=== PATIENT | female | born 1960 | race Caucasian/White ===

== ENCOUNTER 2016-07-05 16:07 | Inpatient (IN) | payer OTHER, MEDICAID ==
[~2016-07-05] VITALS: Ht 175.3 cm; Wt 94.6 kg
[~2016-07-05 16:07] MED LIST: AMIT150T PO; AMIT1TAB79 PO; ASPI325T33 PO; ATEN50TA PO; ATOR10TA15 PO; CHOL1TAB29 PO; CLOT1CRE6 TOPICAL; DEXA4TAB IA; FURO1TAB60 PO; GABA800T PO; GLIP10TA6 PO; GLUC1000 PO; LACT10SO PO; LISI-588 PO; METF500T PO; MS C60TA2 PO; MSIR15 PO; NITR0.4S SL; OMEP20TA PO; POTA10TA8 PO; PROM50TA PO; REGL10TA5 PO; SOMA350T PO; XANA1TAB2 PO; ZOFR4TAB PO; [UNRECOGNIZED DRUG - CODE] TOPICAL
[2016-07-05 16:10] VITALS: BP 105/47; PULSE 73; RESP 16; TEMP 98.4; O2SAT 97
[2016-07-05] MEDS ORDERED: SODIUM CHLOR 0.9% 1000 ML INJ 1,000 ML IV SCH (16:28)
[2016-07-05] MEDS ORDERED: SODIUM CHLORIDE 0.9% FLUSH 10 ML FLUSH IV FLUSH PRN ×2 (16:30→19:00)
[2016-07-05] MEDS ORDERED: ONDANSETRON HCL 4 MG/2 ML VIAL IVP ONE (16:30)
[2016-07-05 16:44] LABS: AUTOMATED NEUTROPHIL # 7.3 TH/MM3 (1.8-7.7); BASOPHIL % 0.3 % (0.0-2.0); EOSINOPHIL % 0.3 % (0.0-4.0); HEMATOCRIT 33.4 % (35.0-46.0); HEMO FLAGS DIFF FINAL; LYMPH % 21.4 % (9.0-44.0); LYMPHOCYTE # 2.1 TH/MM3 (1.0-4.8); MEAN CORPUSCULAR HEMOGLOBIN 27.7 PG (27.0-34.0); MEAN CORPUSCULAR HGB CONC 33.3 % (32.0-36.0); MONO % 5.3 % (0.0-8.0); NEUT % 72.7 % (16.0-70.0); PLATELET COUNT 189 TH/MM3 (150-450); RED BLOOD COUNT 4.03 MIL/MM3 (4.00-5.30); RED CELL DISTRIBUTION WIDTH 13.5 % (11.6-17.2); WHITE BLOOD COUNT 9.9 TH/MM3 (4.0-11.0)
--- NOTE | 2016-07-05 16:47 | PD ---
HPI Chief Complaint: GI Complaint Time Seen by Provider: 16:18 Travel History International Travel<30 days: No Contact w/Intl Traveler<30days: No Traveled to known affect area: No History of Present Illness HPI Patient is a 56 year old female who presents to ER with c/o of nausea, vomiting and acute urinary retention. Patient reports that she has not been feeling well for the past couple days, reports that she has been feeling nauseous and has been vomiting has not been able to keep down any fluids. Patient reports that since last night, she has not been able to urinate. Patient reports that she did have a recent urological procedure on May 04, [address] 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 Reports that she did follow up with her PCP on July 03, 2016 for her nausea and vomiting and was prescribed phenergen - reports that she has not had relief with phenergen as well as zofran. Patient reports that she has had suprapubic discomfort, denies any fevers or chills. PFSH Past Medical History Arthritis: Yes Asthma: No Autoimmune Disease: Yes (LUPUS) Blood Disorders: No Anxiety: Yes Depression: Yes Heart Rhythm Problems: Yes (TACHYCARDIA; PT HAS CONGENITAL CLUSTER DZ WITH MULTI COMPLICATIONS) Cancer: No Cardiovascular Problems: Yes (HX SVT, HX CHEST PAIN) High Cholesterol: Yes Chest Pain: Yes Congestive Heart Failure: No COPD: No Cerebrovascular Accident: No Diabetes: Yes Patient Takes Glucophage: Yes (METFORMIN) Diminished Hearing: No Endocrine: Yes Gastrointestinal Disorders: Yes (GALLSTONES) GERD: Yes Glaucoma: No Genitourinary: Yes (FREQUENT UTI'S ,RIGHT URETERAL STENT,HX KIDNEY STONES, CONGENITAL URETER [place]) Headaches: No Hepatitis: No Hiatal Hernia: No Hypertension: Yes Immune Disorder: No Implanted Vascular Access Dvce: Yes (STABILIZER FOR RIB AND P/ CARDIAC CLUSTER CORRECTION AND RIB FX) Kidney Stones: No Musculoskeletal: Yes (RIGHT TMJ, CERVICAL AND RIGHT SHOULDER,ARTHRITIS) Neurologic: No Psychiatric: Yes (PTSD/DEPRESSION) Reproductive: No Respiratory: No Immunizations Current: Yes Migraines: No Myocardial Infarction: No Renal Failure: No Seizures: No Sleep Apnea: No Thyroid Disease: No Ulcer: No Influenza Vaccination: No Menopausal: Yes : 4 Para: 3 Miscarriage: 1 : 1 Tubal Ligation: Yes Past Surgical History Abdominal Surgery: Yes (CHOLYCYSTECTOMY, REMOVAL STONE BILE DUCT) AICD: No Appendectomy: Yes Body Medical Devices: STIMULATOR LEFT BUTTOCKS Cardiac Surgery: No Cholecystectomy: Yes Ear Surgery: No Endocrine Surgery: No Eye Surgery: Yes (TEAR DUCT PLUGS) Genitourinary Surgery: Yes (URETERAL STENTS) Gynecologic Surgery: Yes (YANNA, TUBAL LIG.) Hysterectomy: Yes Joint Replacement: No Neurologic Surgery: Yes (L4-5 S1 FUSION) Oral Surgery: Yes (PART OF RIGHT JAWBONE REMOVED) Pacemaker: No Thoracic Surgery: Yes (SEE OTHER ) Other Surgery: Yes (33-38 SURGERIES) Social History Alcohol Use: No Tobacco Use: No (never) Substance Use: No Allergies-Medications (Allergen,Severity, Reaction): Coded Allergies: Adhesives (Verified Allergy, Severe, hives short period of time only is fine, 07/05/16) IV TAPES ARE OK Epinephrine (Verified Allergy, Severe, INCREASED SVT'S, 07/05/16) Shellfish (Verified Allergy, Severe, Hives, 07/05/16) Amoxicillin (Verified Allergy, Mild, CHEST TIGHTNESS, 07/05/16) Caffeine (Verified Adverse Reaction, Severe, SVT, 07/05/16) Codeine (Verified Adverse Reaction, Severe, IRREGULAR HEARTRATE, 07/05/16) Zanaflex (Verified Adverse Reaction, Severe, Hallucinations. , 07/05/16) Augmentin (Verified Adverse Reaction, Intermediate, [place] bad, chest felt funny, nauseated, 07/05/16) Reported Meds & Prescriptions Reported Meds & Active Scripts Active Glipizide 10 Mg Tab 10 Mg PO BIDAC Take 30 minutes before a meal Xanax (Alprazolam) 1 Mg Tab 1 Mg PO Q6H PRN 05/02 Phenergan (Promethazine HCl) 50 Mg Tab 50 Mg PO Q6H PRN Omeprazole 20 Mg Tab 20 Mg PO DAILY Lactulose Liq (Lactulose) 10 Gm/15 Ml Soln 30 Ml PO TID Atenolol 50 Mg Tab 50 Mg PO BID Atorvastatin (Atorvastatin Calcium) 10 Mg Tab 10 Mg PO HS Gabapentin 800 Mg Tab 800 Mg PO QID Lasix (Furosemide) 40 Mg Tab 40 Mg PO DAILY Potassium Chloride CR (Potassium Chloride) 10 Meq Tab 10 Meq PO DAILY Zofran (Ondansetron HCl) 4 Mg Tab 4 Mg PO Q12HR PRN D3 2000 (Cholecalciferol) 2,000 Unit Tab 1 Tab PO DAILY Morphine IR (Morphine Sulfate) 15 Mg Tab 15 Mg PO Q4H PRN Amitriptyline (Amitriptyline HCl) 150 Mg Tab 150 Mg PO HS Elavil (Amitriptyline HCl) 25 Mg Tab 150 Tab PO HS Reported Metformin (Metformin HCl) 1,000 Mg Tab 2,500 Mg PO BID With a meal Soma (Carisoprodol) 250 Mg Tab 250 Mg PO TID PRN Lidocare Back/Shoulder (Lidocaine) 4 % Pad 1 Pad TOPICAL DAILY PRN Nitrostat SL (Nitroglycerin) 0.4 Mg Subl 0.4 Mg SL DIRECTED PRN ONE TABLET UNDER THE TONGUE NEEDED FOR CHEST PAIN, MAY REPEAT EVERY FIVE MINUTES FOR A TOTAL OF 3 DOSES OR CALL 911 IF NO RELIEF Ms Contin (Morphine Sulfate) 60 Mg Tab 60 Mg PO Q8H Reglan (Metoclopramide HCl) 10 Mg Tab 10 Mg PO TIDAC PRN Review of Systems General / Constitutional: No: Fever Eyes: No: Visual changes HENT: No: Headaches Cardiovascular: No: Chest Pain or Discomfort Respiratory: No: Shortness of Breath Gastrointestinal: Positive: Nausea, Vomiting, Abdominal Pain Genitourinary: Positive: Decreased Urinary Output, Hesitancy, Dribbling, No: Dysuria Musculoskeletal: No: Pain Skin: No Rash Neurologic: No: Weakness Psychiatric: No: Depression Endocrine: No: Polydipsia Hematologic/Lymphatic: No: Easy Bruising Physical Exam Narrative GENERAL: mild distress SKIN: Focused skin assessment warm/dry. HEAD: Atraumatic. Normocephalic. EYES: Pupils equal and round. No scleral icterus. No injection or drainage. ENT: No nasal bleeding or discharge. Mucous membranes pink and moist. NECK: Trachea midline. No JVD. CARDIOVASCULAR: Regular rate and rhythm. No murmur appreciated. RESPIRATORY: No accessory muscle use. Clear to auscultation. Breath sounds equal bilaterally. GASTROINTESTINAL: Abdomen soft, mildly tender to lower abdomen with no rebound or guarding, nondistended. MUSCULOSKELETAL: No obvious deformities. No clubbing. No cyanosis. No edema. NEUROLOGICAL: Awake and alert. No obvious cranial nerve deficits. Motor grossly within normal limits. Normal speech. PSYCHIATRIC: Appropriate mood and affect; insight and judgment normal. Data Data Last Documented VS Vital Signs Date Time Temp Pulse Resp B/P Pulse Ox O2 Delivery O2 Flow Rate FiO2 07/05/16 17:49 79 16 116/49 95 Room Air 07/05/16 16:10 98.4 Orders Complete Blood Count With Diff (07/05/16 16:28) Comprehensive Metabolic Panel (07/05/16 16:28) Lipase (07/05/16 16:28) Prothrombin Time / Inr (Pt) (07/05/16 16:28) Act Partial Throm Time (Ptt) (07/05/16 16:28) Urinalysis - C+S If Indicated (07/05/16 16:28) Iv Access Insert/Monitor (07/05/16 16:28) Ondansetron Inj (Zofran Inj) (07/05/16 16:30) Sodium Chlor 0.9% 1000 Ml Inj (Ns 1000 M (07/05/16 16:28) Sodium Chloride 0.9% Flush (Ns Flush) (07/05/16 16:30) Ct Abd/Pel W/O Iv Contrast (07/05/16 16:33) Urinary Catheter Insert/Apply (07/05/16 17:07) Sodium Chlor 0.9% 1000 Ml Inj (Ns 1000 M (07/05/16 17:30) Urine Culture (07/05/16 17:15) Levofloxacin 750 Mg Premix Inj (Levaquin (07/05/16 18:00) Ondansetron Inj (Zofran Inj) (07/05/16 18:00) Admit Order (Ed Use Only) (07/05/16 18:49) Sodium Polysty Sulfate Liq (Kayexalate L (07/05/16 19:00) Aztreonam Inj (Azactam Inj) (07/05/16 20:00) Consult Nephrology (07/05/16 ) Consult Urology (07/05/16 ) Admit To Inpatient (07/05/16 ) Vital Signs (Adult) Q4H (07/05/16 18:47) Activity Oob Ad Rupal (07/05/16 18:47) Intake + Output CELESTINO.QSHIFT (07/05/16 18:47) Sodium Chlor 0.9% 1000 Ml Inj (Ns 1000 M (07/05/16 18:47) Sodium Chloride 0.9% Flush (Ns Flush) (07/05/16 19:00) Sodium Chloride 0.9% Flush (Ns Flush) (07/05/16 21:00) Acetaminophen (Tylenol) (07/05/16 19:00) Ondansetron Inj (Zofran Inj) (07/05/16 19:00) Metoclopramide Inj (Reglan Inj) (07/05/16 19:00) Prochlorperazine Supp (Compazine Supp) (07/05/16 19:00) Docusate Sodium (Colace) (07/05/16 21:00) Magnesium Hydroxide Liq (Milk Of Magnesi (07/05/16 19:00) Basic Metabolic Panel (Bmp) (07/06/16 06:00) Complete Blood Count With Diff (07/06/16 06:00) Scd Bilateral/Knee High CELESTINO.BID (07/05/16 18:47) Acetamin-Hydrocod 325-5 Mg ([place] 5-325 (07/05/16 19:00) Morphine Inj (Morphine Inj) (07/05/16 19:00) Naloxone Inj (Narcan Inj) (07/05/16 19:00) Inpatient Certification (07/05/16 ) Labs Laboratory Tests Test 07/05/16 07/05/16 16:30 17:15 White Blood Count 9.9 TH/MM3 Red Blood Count 4.03 MIL/MM3 Hemoglobin 11.1 GM/DL Hematocrit 33.4 % Mean Corpuscular Volume 83.0 FL Mean Corpuscular Hemoglobin 27.7 PG Mean Corpuscular Hemoglobin 33.3 % Concent Red Cell Distribution Width 13.5 % Platelet Count 189 TH/MM3 Mean Platelet Volume 7.2 FL Neutrophils (%) (Auto) 72.7 % Lymphocytes (%) (Auto) 21.4 % Monocytes (%) (Auto) 5.3 % Eosinophils (%) (Auto) 0.3 % Basophils (%) (Auto) 0.3 % Neutrophils # (Auto) 7.3 TH/MM3 Lymphocytes # (Auto) 2.1 TH/MM3 Monocytes # (Auto) 0.5 TH/MM3 Eosinophils # (Auto) 0.0 TH/MM3 Basophils # (Auto) 0.0 TH/MM3 CBC Comment DIFF FINAL Differential Comment Prothrombin Time 12.8 SEC Prothromb Time International 1.2 RATIO Ratio Activated Partial 29.1 SEC Thromboplast Time Sodium Level 130 MEQ/L Potassium Level 5.2 MEQ/L Chloride Level 90 MEQ/L Carbon Dioxide Level 18.7 MEQ/L Anion Gap 21 MEQ/L Blood Urea Nitrogen 72 MG/DL Creatinine 7.80 MG/DL Estimat Glomerular Filtration 5 ML/MIN Rate Random Glucose 70 MG/DL Calcium Level 8.8 MG/DL Total Bilirubin 0.2 MG/DL Aspartate Amino Transf 14 U/L (AST/SGOT) Alanine Aminotransferase 18 U/L (ALT/SGPT) Alkaline Phosphatase 72 U/L Total Protein 8.0 GM/DL Albumin 3.5 GM/DL Lipase 126 U/L Urine Collection Type CLEAN CATCH Urine Color YELLOW Urine Turbidity CLOUDY Urine pH 5.5 Urine Specific [place] 1.015 Urine Protein 100 mg/dL Urine Glucose (UA) NEG mg/dL Urine Ketones NEG mg/dL Urine Occult Blood MOD Urine Nitrite NEG Urine Bilirubin NEG Urine Leukocyte Esterase LARGE Urine RBC 0-3 /hpf Urine WBC 100-200 /hpf Urine WBC Clumps MOD Urine Bacteria MANY /hpf Microscopic Urinalysis Comment CULTURE INDICATED MDM Medical Decision Making Medical Screen Exam Complete: Yes Emergency Medical Condition: Yes Interpretation(s) Vital Signs Date Time Temp Pulse Resp B/P Pulse Ox O2 Delivery O2 Flow Rate FiO2 07/05/16 16:10 98.4 73 16 105/47 97 Differential Diagnosis acute urinary retention, cystitis, pyelonephritis, small bowel obstruction, perforated bladder, colitis, constipation, renal failure Narrative Course Patient is a 56-year-old female who presents to emergency room with complaints of intractable nausea or vomiting for the past 3 days with acute urinary retention. She reports that she had a recent urological procedure by Dr. Owen as she had robotic pyeloplasty on right ureter in April 2016. Reports that for the past 3 days, she has not been able to void. Reports that since last night, she has not been able to pass urine. Patient reports discomfort to her lower abdomen suprapubically. Bladder scan utilized to see if patient has urinary retention, bladder scan showed 0 urine in her bladder. Patient is uncomfortable this time, labs obtained to evaluate for renal function. UA ordered. Plan to hydrate patient and give antiemetics. BMP resulted, BUN/CR: 72 / 7.8 patient is in renal failure at this time, baseline creatine 17 / 0.92 Andrews catheter placed to measure accurate I's and O 's Anion gap 21, CO2 18.7: most likely from acute renal failure Case reviewed with Dr. Tamayo who accepts pt to service Patient feeling much better at this time, reviewed all labs and studies with her in detail. Patient appreciative of care Critical Care Narrative Aggregate critical care time was 30 minutes. Time to perform other separately billable procedures was not included in the critical care time. My time did not include minutes spent treating any other patients simultaneously or on activities that did not directly contribute to the patient's treatment. The services I provided to this patient were to treat and/or prevent clinically significant deterioration that could result in: , decompensation, deterioration I provided critical care services requiring my management, as noted below: Chart data review, documentation time, medication orders and management, vital sign assessments/reviewing monitor data, ordering and reviewing lab tests, ordering and interpreting/reviewing x-rays and diagnostic studies, care of the patient and discussion of the patient with the admitting physicians. Physician Communication Physician Communication Dr Tamayo Diagnosis Primary Impression: Renal failure Additional Impressions: UTI (urinary tract infection) Qualified Code: N30.00 - Acute cystitis without hematuria Hyperkalemia Sepsis Admitting Information Admitting Physician Requests: Admit Kimmy Galo DO Jul 05, 2016 16:47
[2016-07-05 16:57] LABS: CHLORIDE 90 MEQ/L (98-107); POTASSIUM 5.2 MEQ/L (3.5-5.1); SODIUM (NA) 130 MEQ/L (136-145)
[2016-07-05 17:01] LABS: ANION GAP 21 MEQ/L (5-15); BICARBONATE 18.7 MEQ/L (21.0-32.0); BLOOD UREA NITROGEN 72 MG/DL (7-18)
[2016-07-05 17:03] LABS: APTT (PATIENT) 29.1 SEC (24.3-30.1); INTERNATIONAL NORMALIZED RATIO 1.2 RATIO; PROTHROMBIN TIME - PATIENT 12.8 SEC (9.8-11.6)
[2016-07-05 17:04] LABS: ALT (GPT) 18 U/L (10-53); AST (GOT) 14 U/L (15-37); GLOMERULAR FILTRATION RATE 5 ML/MIN (>89)
[2016-07-05 17:05] LABS: TOTAL BILIRUBIN ADULT 0.2 MG/DL (0.2-1.0)
[2016-07-05 17:07] LABS: ALKALINE PHOSPHATASE 72 U/L (45-117)
[2016-07-05] MEDS ORDERED: SODIUM CHLOR 0.9% 1000 ML INJ 1,000 ML IV ONE (17:30)
[2016-07-05 17:31] LABS: GLUCOSE,URINE NEG (NEG); KETONE, URINE NEG (NEG); NITRITE,URINE NEG (NEG); PH, URINE 5.5 (5.0-8.5)
[2016-07-05 17:37] LABS: BLOOD, URINE MOD (NEG)
[2016-07-05] MEDS ORDERED: SOMA250T PO (17:37)
[2016-07-05] MEDS ORDERED: METF1000 PO (17:37)
[2016-07-05 17:38] LABS: METHOD OF COLLECTION CLEAN CATCH; URINE COLOR YELLOW (YELLW/STRAW)
[2016-07-05 17:39] LABS: BACTERIA, URINE MANY /hpf; COMMENT (UR) CULTURE INDICATED; CULTURE IF INDICATED CULTURE INDICATED; RBC, URINE 0-3 /hpf (0-3); WBC, URINE 100-200 /hpf (0-5)
[2016-07-05 17:49] VITALS: BP 116/49; PULSE 79; RESP 16; O2SAT 95
[2016-07-05] MEDS ORDERED: ONDANSETRON HCL 4 MG/2 ML VIAL IV PUSH ONE (18:00)
[2016-07-05] MEDS ORDERED: LEVOFLOXACIN 750 MG PREMIX INJ 150 ML IV ONE (18:00)
--- NOTE | 2016-07-05 18:38 | RADHPO ---
EXAM DATE/TIME: 07/05/2016 17:23 [facility] COMPARISON: CT ABDOMEN & PELVIS W/O CONTRAST, January 25, 2016, 2:35. INDICATIONS : Abdomen pain, weakness. ORAL CONTRAST: No oral contrast ingested. RADIATION DOSE: 19.39 CTDIvol (mGy) MEDICAL HISTORY : Cardiovascular disease. Diabetes mellitus type 2. SURGICAL HISTORY : Appendectomy. Cholecystectomy.Hysterectomy. ENCOUNTER: Initial ACUITY: 1 day PAIN SCALE: 5/10 LOCATION: abdomen TECHNIQUE: Volumetric scanning of the abdomen and pelvis was performed. Using automated exposure control and ad justment of the mA and/or kV according to patient size, radiation dose was kept as low as reasonably achievable to obtain optimal diagnostic quality images. FINDINGS: LOWER LUNGS: The visualized lower lungs are clear. LIVER: Homogeneous density without lesion for noncontrast technique. The left lobe is prominent, similar to prior. There is no dilation of the biliary tree. Hemoclips in the dylan from prior cholecystectomy . SPLEEN: Normal size without lesion. Long axis of the spleen measures 11.6 cm (previously measured 15.7 cm). PANCREAS: Within normal limits. KIDNEYS: The left kidney is normal in appearance. No calcified stones. On the right side, there is loss of t he renal sinus fat and minimal prominence of the extrarenal pelvis. Prior CT had demonstrated marked dilation of the extrarenal pelvis and an indwelling ureteral stent. The proximal right ureter is mi nimally prominent, but not dilated. No calcified stones seen on the right side. ADRENAL GLANDS: Within normal limits. VASCULAR: There is no aortic aneurysm. BOWEL/MESENTERY: No dilated loops of small or large bowel. No evidence of free fluid. ABDOMINAL WALL: Within normal limits. RETROPERITONEUM: There is no lymphadenopathy. BLADDER: Andrews catheter in a nondistended bladder. REPRODUCTIVE: Hysterectomy. No masses seen. INGUINAL: There is no lymphadenopathy or hernia. MUSCULOSKELETAL: Metallic interspace devices at L4-5 and L5-S1. Spinal stimulator electrodes in place. CONCLUSION: No acute findings. Mild prominence of the renal pelvis on the left side is less prominent than on pr ior CT and there is no definite evidence of hydronephrosis. No calcified stones. No dilated loops o f small or large bowel. Adiel Harmon MD on July 05, 2016 at 18:31 Board Certified Radiologist. This report was verified electronically.
[2016-07-05] MEDS ORDERED: GLUCAGON 1 MG/ML VIAL OTHER PRN (19:00)
[2016-07-05] MEDS ORDERED: SODIUM POLYSTYRENE SULFONATE SUSP 15 GM/60 ML CUP PO ONE (19:00)
[2016-07-05] MEDS ORDERED: MAGNESIUM HYDROXIDE SUSP 30 ML CUP PO PRN (19:00)
[2016-07-05] MEDS ORDERED: METOCLOPRAMIDE HCL 10 MG/2 ML VIAL IV PUSH PRN (19:00)
[2016-07-05] MEDS ORDERED: NALOXONE HCL 0.4 MG/ML AMP IV PRN (19:00)
[2016-07-05] MEDS ORDERED: ALPRAZolam 1 MG TAB PO PRN (19:00)
[2016-07-05] MEDS ORDERED: ACETAMINOPHEN 325 MG TAB PO PRN (19:00)
[2016-07-05] MEDS ORDERED: PROCHLORPERAZINE 25 MG SUPP RECTAL PRN (19:00)
[2016-07-05 19:20] VITALS: BP 112/62; PULSE 82; RESP 16; O2SAT 98
[2016-07-05] MEDS: SODIUM CHLOR 0.9% 1000 ML INJ 1,000 ML IV SCH (19:57)
[2016-07-05] MEDS ORDERED: AZTREONAM INJ 1,000 MG in SODIUM CHLORIDE 0.9% INJ 100 ML IV SCH (20:00)
[2016-07-05] MEDS: DEXTROSE 50% IN WATER 50 ML VIAL(D50) IV PUSH PRN (20:51)
[2016-07-05] MEDS: SODIUM CHLORIDE 0.9% FLUSH 10 ML FLUSH IV FLUSH SCH (21:00)
[2016-07-05] MEDS: ATORVASTATIN 10 MG TAB PO SCH (21:00)
[2016-07-05] MEDS: INSULIN ASPART SUPPLEMENTAL SCALE SQ SCH (21:00)
[2016-07-05] MEDS: MORPHINE SULFATE 60 MG CONTROLLED RELEASE TAB PO SCH (21:37)
[2016-07-05] MEDS: DOCUSATE SODIUM 100 MG CAP PO SCH (21:37)
[2016-07-05] MEDS: MORPHINE SULFATE 4 MG/ML INJ IV PRN (21:38)
[2016-07-05 21:41] LABS: LACTIC ACID GHOST NOT REPORTABLE
[2016-07-05 21:51] VITALS: BP 127/72; PULSE 78; RESP 16
[2016-07-05 22:00] VITALS: BP 109/58; PULSE 75; RESP 18; TEMP 96.9; O2SAT 97
[2016-07-06] VITALS (37 sets, daily range): BP systolic 73–119; BP diastolic 34–55; PULSE 68–82; RESP 6–24; TEMP 96.8–98.7; O2SAT 84–100
[2016-07-06] MEDS: SODIUM CHLOR 0.9% 1000 ML INJ 1,000 ML IV SCH (01:27)
[2016-07-06] MEDS: MORPHINE SULFATE 4 MG/ML INJ IV PRN ×2 (03:32→15:50)
--- NOTE | 2016-07-06 05:00 | MB ---
cc: MIKEY LEON MD DATE OF CONSULTATION: 07/05/2016 REASON FOR CONSULTATION: Elevated BUN and creatinine for evaluation. HISTORY OF PRESENT ILLNESS This is 56-year-old female with past medical history of ureteral obstruction with history of stent placement following with urology, history of anxiety and depression, hyperlipidemia, diabetes mellitus, came to the hospital because of nausea and vomiting, generalized weakness and urinary retention. The patient has elevated BUN and creatinine. The patient had a previous creatinine of 0.9. This was in March of last year and now he came in with a BUN of 72, creatinine of 7.8. The patient has been following with Dr. Owen and she has a history of cystoscopy and stent placement because of right ureteral stenosis and according to the patient the stent was removed about 10 days ago and for two or three days after the procedure she was able to pass the urine without any problem but for the last one week or so, she has noticed that she is not passing that much urine and gradually her urine output has gone down and she has been feeling weak and tired, and having nausea and vomiting, and having some abdominal pain. The patient has a history of kidney stone and the last time she had a pyeloplasty which was done by Dr. Owen and right ureteral stent placement. The patient denies any history of fever. She took Advil one or two times in the last 10 days. PAST MEDICAL HISTORY: 1. Hypertension. 2. Diabetes mellitus. 3. Hyperlipidemia. 4. History of kidney stones. 5. History of right ureteral obstruction. 6. History of lupus. 7. Anxiety and depression. PAST SURGICAL HISTORY: 1. Multiple cystoscopy with right pyeloplasty. 2. Cholecystectomy. 3. Appendicectomy. 4. Back surgery for L4-L5, S1 fusion. REVIEW OF SYSTEMS There is no history of fever. Denies any headache, dizziness. She has generalized weakness, feeling tired, has nausea and vomiting off and on, going on for the last one week, with some abdominal cramps. There is no history of diarrhea. She has constipation. She has no dysuria, hematuria but she has gradually decreasing urine output in the last one week or so and sometimes she feels like she needs to pass the urine and nothing much is coming out. She denied any headache or dizziness. She has taken one or two Advil in the last 7 to 10 days. SOCIAL HISTORY There is no history of smoking or alcoholism. FAMILY HISTORY: Noncontributory. ALLERGIES AMOXICILLIN, AUGMENTIN, CAFFEINE, CODEINE, EPINEPHRINE, SHELL FISH, ZANAFLEX. MEDICATIONS Currently she is on following medications: 1. IV fluids, normal saline at 150 mL an hour, IV bolus. 2. Protonix 20 mg once a day. 3. Lipitor 10 mg q. hs. 4. Aztreonam 1 gram q. 12-hour. 5. Morphine 60 mg q. 8-hour. 6. Colace 100 mg q. 12-hour. 7. Insulin sliding scale. 8. Zofran as needed 9. Compazine 10. [place] as needed. 11. Xanax as needed PHYSICAL EXAMINATION: The patient is awake, alert. She is not in acute distress. VITAL SIGNS: Her last blood pressure is 109/58, temperature 96.9, oxygen saturation 97 to 98%. HEENT: Pupils reactive to light. Anicteric sclera. Conjunctivae normal. Neck: Supple. JVD is not elevated. Lungs: The patient has bilateral good air entry. No wheezing. Heart: S1-S2 regular rhythm. Abdomen: Soft, lax. There is no definite tenderness. Bowel sounds positive. Extremities: There is no pedal edema. LABORATORY DATA: WBC count 9.9, hemoglobin 11.1, platelet count 189, neutrophils 72.7%, eos 0.3. Sodium is 130, potassium 5.2, chloride 180, bicarb 18.7, BUN 72, creatinine 7.8, lactic acid is 5.7. Calcium is 8.8, AST 14, ALT 18. Total protein is 8.0, albumin is 3.5, lipase 126. INR is 1.2. Urinalysis showing that there is protein of 100. The patient has LISSY titer positive, one is 218 in 2008, one is 214 in 2010. There is no anti-DNA done. IMAGING STUDIES: CT scan of the abdomen and pelvis done. It shows left kidney normal apperance, no calcified stone on the right side. There is also fat and minimal prominence of the renal pelvis. Previous CT showed dilatation of the external renal pelvis and stent, small right ureter is minimally prominent, but no calcified stone on the right side. ASSESSMENT AND PLAN: 1. Acute kidney injury. 2. Metabolic acidosis with lactic acidosis. 3. Severe dehydration. 4. Possible urinary tract infection. 5. Mild hyperkalemia. The patient has a history of ureteral pyeloplasty in the past and now developing acute kidney injury. There is no hydronephrosis on the CT scan at present. She started passing some urine after getting the IV bolus. There is a possibility of severe dehydration causing this acute kidney injury, other possibility of acute tubular necrosis because of the urinary tract infection. Will continue with IV fluid. I will add sodium bicarbonate by mouth and follow the urine output, BUN and creatinine. Avoid nephrotoxins. Thank you for the consultation. MD DEANA Sanchez/EMILY /11:21 PM /3:45 AM
[2016-07-06] MEDS: MORPHINE SULFATE 60 MG CONTROLLED RELEASE TAB PO SCH ×2 (06:00→20:30)
[2016-07-06] MEDS: INSULIN ASPART SUPPLEMENTAL SCALE SQ SCH ×3 (07:00→16:00)
[2016-07-06 07:31] LABS: AUTOMATED NEUTROPHIL # 7.2 TH/MM3 (1.8-7.7); BASOPHIL % 0.4 % (0.0-2.0); EOSINOPHIL % 0.4 % (0.0-4.0); HEMATOCRIT 31.7 % (35.0-46.0); HEMO FLAGS DIFF FINAL; LYMPH % 27.2 % (9.0-44.0); LYMPHOCYTE # 3.1 TH/MM3 (1.0-4.8); MEAN CELL VOLUME 83.6 FL (80.0-100.0); MEAN CORPUSCULAR HEMOGLOBIN 27.1 PG (27.0-34.0); MEAN CORPUSCULAR HGB CONC 32.4 % (32.0-36.0); MONO % 10.1 % (0.0-8.0); NEUT % 61.9 % (16.0-70.0); PLATELET COUNT 214 TH/MM3 (150-450); RED CELL DISTRIBUTION WIDTH 13.3 % (11.6-17.2); WHITE BLOOD COUNT 11.6 TH/MM3 (4.0-11.0)
[2016-07-06 07:40] LABS: POTASSIUM 5.4 MEQ/L (3.5-5.1)
[2016-07-06] MEDS ORDERED: SODIUM CHLOR 0.9% 1000 ML INJ 1,000 ML IV ONE (07:45)
[2016-07-06 07:56] LABS: BICARBONATE 16.7 MEQ/L (21.0-32.0)
[2016-07-06] MEDS ORDERED: INSULIN HUMAN REGULAR 1,000 UNITS/10 ML VIAL IV PUSH ONE (08:00)
[2016-07-06] MEDS ORDERED: CALCIUM GLUCONATE 10% 1 GM/10 ML VIAL IV PUSH ONE ×2 (08:00→09:30)
[2016-07-06] MEDS ORDERED: DEXTROSE 50% IN WATER 50 ML VIAL(D50) IV PUSH ONE (08:00)
[2016-07-06 08:32] LABS: POTASSIUM 5.4 MEQ/L (3.5-5.1)
[2016-07-06 08:35] LABS: BICARBONATE 16.5 MEQ/L (21.0-32.0)
[2016-07-06] MEDS: SODIUM BICARBONATE 8.4% INJ 75 MEQ in SODIUM CHLOR 0.45% 1000 ML INJ 1,000 ML IV SCH ×2 (09:25→20:28)
[2016-07-06] MEDS: DEXTROSE 50% IN WATER 50 ML VIAL(D50) IV PUSH PRN (09:51)
[2016-07-06 09:54] LABS: BLOOD, URINE SMALL (NEG); GLUCOSE,URINE NEG (NEG); KETONE, URINE NEG (NEG); NITRITE,URINE NEG (NEG); PH, URINE 5.5 (5.0-8.5)
[2016-07-06 09:57] LABS: METHOD OF COLLECTION CATH
[2016-07-06 09:59] LABS: BACTERIA, URINE FEW /hpf; RBC, URINE 0-3 /hpf (0-3); URINE COLOR STRAW (YELLW/STRAW)
[2016-07-06 10:00] LABS: HYALINE CAST, URINE 0-2 /lpf (RARE)
[2016-07-06] MEDS ORDERED: SODIUM POLYSTYRENE SULFONATE SUSP 15 GM/60 ML CUP PO ONE (10:00)
[2016-07-06 10:12] LABS: LACTIC ACID GHOST NOT REPORTABLE
[2016-07-06] MEDS: SODIUM CHLORIDE 0.9% FLUSH 10 ML FLUSH IV FLUSH SCH ×2 (10:16→20:29)
[2016-07-06] MEDS: PANTOPRAZOLE SOD 20 MG DELAYED RELEASE TAB PO SCH (10:17)
[2016-07-06] MEDS: DOCUSATE SODIUM 100 MG CAP PO SCH ×2 (10:17→20:29)
[2016-07-06 10:52] LABS: POTASSIUM 5.2 MEQ/L (3.5-5.1)
[2016-07-06 10:55] LABS: BICARBONATE 18.7 MEQ/L (21.0-32.0)
[2016-07-06] MEDS ORDERED: DEXTROSE 10% INJ 1,000 ML IV SCH (11:00)
--- NOTE | 2016-07-06 13:00 | RADHPO ---
EXAM DATE/TIME: 07/06/2016 12:09 [facility] COMPARISON: No previous studies available for comparison. EXTERNAL COMPARISON : [facility], NM RENOGRAM W/ LASIK, June 23, 2016CT ABDOMEN & PELVIS W CONTRAST 2009, US BILA TERAL RENAL, June 08, 2006. INDICATIONS : Increased BUN/creatinine. MEDICAL HISTORY : Hypercholesterolemia. Hypertension. Arthritis. Syncope. SVT. Chest pain. Tachycardia. GERD. UTIs. [place] al calculi. Diabetes. PTSD. Anxiety. LUPUS. MRSA. SURGICAL HISTORY : Angioplasty. Cholecystectomy. Appendectomy. Tear duct plugs. Partial right jawbone removal. L4-5-S1 f usion. Cardiac cath. Removal stone bile duct. Tubal ligation. Hysterectomy. Right ureteral stent. Art hroscopies bilateral knees. Bilateral carpel tunnel release. Three rotator cuff surgeries. Blood fermin sfusions. Stabilizer for rib fracture. Cardiac cluster correction. ENCOUNTER: Initial ACUITY: 1 day PAIN SCORE: 5/10 LOCATION: Bilateral flank MEASUREMENTS: RIGHT KIDNEY: 13.7 x 5.4 x 6.6 cm LEFT KIDNEY: 11.2 x 5.8 x 5.4 cm FINDINGS: Right renal stent was removed last week. There is minimal dilatation of the right collecting system. This cannot be followed down to the bladder because of bowel gas. The left kidney is grossly unremarkable. Kidneys are normal size. Cortex is preserved. CONCLUSION: Renal size and cortex are reasonably well-preserved. Mild dilatation of the right collecting system. José Miguel Feldman MD FACR on July 06, 2016 at 12:57 Board Certified Radiologist. This report was verified electronically.
[2016-07-06] MEDS: ALPRAZolam 0.5 MG TAB PO PRN ×2 (13:05→20:20)
[2016-07-06] MEDS: CALCIUM ACETATE 667 MG CAP PO SCH (13:05)
[2016-07-06] MEDS: ACETAMINOPHEN/HYDROcodone 325 MG/5 MG TAB PO PRN (13:06)
--- NOTE | 2016-07-06 14:42 | HHI.HP ---
[facility] Service Critical Care Medicine Primary Care Physician Shayna Aguilera MD Admission Diagnosis Acute renal failure Diagnosis: (1) Acute renal failure Diagnosis: Principal (2) Hypotension Diagnosis: Principal (3) Lactic acid acidosis Diagnosis: Principal (4) Prolongation of QRS complex on electrocardiography Diagnosis: Principal (5) Dehydration Diagnosis: Principal (6) Nausea & vomiting Diagnosis: Principal (7) Hyperkalemia Diagnosis: Principal (8) Hyperphosphatemia Diagnosis: Principal (9) Urinary tract infection Diagnosis: Principal (10) Diabetes Diagnosis: Secondary (11) Hypoglycemia Chief Complaint: Nausea, vomiting, decreased urinary output Travel History International Travel<30 Days: No Contact w/Intl Traveler <30 Da: No Traveled to Known Affected Are: No Sepsis Criteria Severe Sepsis (+one): Organ Dysfunction, Acute Oliguria/Renal Failure Septic Shock Criteria: Lactic acid >=4 History of Present Illness 56-year-old female with known history of hypertension, diabetes, chronic pain who presented to the hospital because of difficulty in urinating. Patient states that for approximately 4 days prior to coming to the hospital she had been experiencing intractable nausea vomiting where she cannot tolerate anything by mouth. She did go see her primary medical doctor Dr. Rollins and was given Phenergan. The patient states that she was still having nausea vomiting. She was about to run out of her chronic pain medication so she went to her pain management doctor's office on the same day and got her prescriptions for her chronic narcotic pain medications. The patient did not improve over the next few days. And she states that she started having decreased urinary output. States abdominal day that she came to the hospital she tried to go to the bathroom and she had to force 2 drops of urine output so because of that reason she came to the hospital for evaluation. Patient had workup done emergency department found to have acute renal failure. Creatinine 7.80. Patient does have a rather extensive kidney, bladder problems with kidney stones. Patient did just undergo surgical intervention by Dr. Owen on 03/18/16. At that time she did undergo cystoscopy urethroscopic, right retrograde pyelogram, right ureter stent exchange, robotic assisted laparoscopic right dismembered pyeloplasty. Patient had been doing well and is followed up with Dr. Owen on a regular basis. Patient did have urinalysis performed which did indicate likely urinary tract infection. Because of acute renal failure, hyperkalemia, urinary tract infection and is recommended the patient be admitted to the medical team for further evaluation. Further testing was performed to include lactic acid which was significantly elevated at 5.6. Patient was apparently hypotensive throughout the evening. Records indicate patient had map of 61-66 throughout the evening. Upon evaluating patient immediately this morning she had a map of 55. At that time urine output was evaluated and Paul had 350 cc of urine in the bag. Night nurse indicates that she has not emptied the bag at this time so this would have to be the amount of urine since placement of the Paul which was 1715, 07/05/16. If that is correct the patient has had 25 cc an hour of urinary output. Telemetry was reviewed and it did indicate that patient had QRS complex was 180 ms. The patient upon being seen by the hospitalist team immediately transferred the patient to the ICU, started IV fluid boluses. Started D50, calcium gluconate and consulted critical care for management. Review of Systems Constitutional: DENIES: Diaphoretic episodes, Fatigue, Fever, Weight gain, Weight loss, Chills, Dizziness, Change in appetite, Night Sweats Eyes: DENIES: Blurred vision, Diplopia, Eye inflammation, Eye pain, Vision loss , Double Vision Ears, nose, mouth, throat: DENIES: Vertigo, Nasal discharge, Throat pain, Ear Pain, Running Nose, Sinus Pain Respiratory: DENIES: Apneas, Cough, Snoring, Wheezing, Hemoptysis, Sputum production, Shortness of breath Cardiovascular: DENIES: Chest pain, Palpitations, Syncope, Dyspnea on Exertion , PND, Lower Extremity Edema, Orthopnea, Claudication Gastrointestinal: COMPLAINS OF: Nausea, Vomiting, DENIES: Abdominal pain, Black stools, Bloody stools, Constipation, Diarrhea, Difficulty Swallowing, Anorexia Genitourinary: COMPLAINS OF: Urinary frequency, Dysuria Neurologic: DENIES: Abnormal gait, Headache, Localized weakness, Paresthesias, Seizures, Speech Problems, Tremor, Poor Balance Psychiatric: DENIES: Anxiety, Confusion, Mood changes, Depression Past Family Social History Allergies: Coded Allergies: Adhesives (Verified Allergy, Severe, hives short period of time only is fine, 07/05/16) IV TAPES ARE OK Epinephrine (Verified Allergy, Severe, INCREASED SVT'S, 07/05/16) Shellfish (Verified Allergy, Severe, Hives, 07/05/16) Amoxicillin (Verified Allergy, Mild, CHEST TIGHTNESS, 07/05/16) Caffeine (Verified Adverse Reaction, Severe, SVT, 07/05/16) Codeine (Verified Adverse Reaction, Severe, IRREGULAR HEARTRATE, 07/05/16) Zanaflex (Verified Adverse Reaction, Severe, Hallucinations. , 07/05/16) Augmentin (Verified Adverse Reaction, Intermediate, [place] bad, chest felt funny, nauseated, 07/05/16) Past Medical History Hypertension Diabetes Chronic pain History kidney stones History ventricular tachycardia Thoracic outlet syndrome Past Surgical History Appendectomy Cholecystectomy Tubal ligation Hysterectomy Ureteral stent placement Urethral stent exchange Multiple surgeries to bilateral lower extremities 3 rotator cuff surgeries Right anterior chest surgery Carpal tunnel surgery Cardiac catheterization Right jaw surgery Neurostimulator L4-S1 fusion Tear duct surgeries Rhizotomies Right dismembered pyeloplasty Reported Medications Reported Meds & Active Scripts Active Glipizide 10 Mg Tab 10 Mg PO BIDAC Take 30 minutes before a meal Xanax (Alprazolam) 1 Mg Tab 1 Mg PO Q6H PRN May fill 05/02 Phenergan (Promethazine HCl) 50 Mg Tab 50 Mg PO Q6H PRN Omeprazole 20 Mg Tab 20 Mg PO DAILY Lactulose Liq (Lactulose) 10 Gm/15 Ml Soln 30 Ml PO TID Atenolol 50 Mg Tab 50 Mg PO BID Atorvastatin (Atorvastatin Calcium) 10 Mg Tab 10 Mg PO HS Gabapentin 800 Mg Tab 800 Mg PO QID Lasix (Furosemide) 40 Mg Tab 40 Mg PO DAILY Potassium Chloride CR (Potassium Chloride) 10 Meq Tab 10 Meq PO DAILY Zofran (Ondansetron HCl) 4 Mg Tab 4 Mg PO Q12HR PRN D3 2000 (Cholecalciferol) 2,000 Unit Tab 1 Tab PO DAILY Morphine IR (Morphine Sulfate) 15 Mg Tab 15 Mg PO Q4H PRN Amitriptyline (Amitriptyline HCl) 150 Mg Tab 150 Mg PO HS Elavil (Amitriptyline HCl) 25 Mg Tab 150 Tab PO HS Reported Metformin (Metformin HCl) 1,000 Mg Tab 2,500 Mg PO BID With a meal Soma (Carisoprodol) 250 Mg Tab 250 Mg PO TID PRN Lidocare Back/Shoulder (Lidocaine) 4 % Pad 1 Pad TOPICAL DAILY PRN Nitrostat SL (Nitroglycerin) 0.4 Mg Subl 0.4 Mg SL DIRECTED PRN ONE TABLET UNDER THE TONGUE NEEDED FOR CHEST PAIN, MAY REPEAT EVERY FIVE MINUTES FOR A TOTAL OF 3 DOSES OR CALL 911 IF NO RELIEF Ms Contin (Morphine Sulfate) 60 Mg Tab 60 Mg PO Q8H Reglan (Metoclopramide HCl) 10 Mg Tab 10 Mg PO TIDAC PRN Family History Reviewed is significant for father having abdominal aneurysm and going blind. Social History Patient denies any tobacco, alcohol or illicit drugs Physical Exam Vital Signs Vital Signs Date Time Temp Pulse Resp B/P Pulse Ox O2 Delivery O2 Flow Rate FiO2 07/06/16 07:41 77 16 99/49 07/06/16 04:00 96.8 77 18 88/48 98 07/06/16 00:00 97.0 72 18 109/42 100 07/05/16 22:00 96.9 75 18 109/58 97 07/05/16 21:51 78 16 127/72 Room Air 07/05/16 19:20 82 16 112/62 98 Room Air 07/05/16 17:49 79 16 116/49 95 Room Air 07/05/16 16:10 98.4 73 16 105/47 97 Physical Exam GENERAL: Well-developed, well-nourished, in no acute distress. alert and orientated HEENT: Head is normocephalic without any lesions or masses noted. Facial features are symmetric. Eyes: Pupils equal round reactive to light. Extraocular muscles are intact. Conjunctivae were clear. Oropharyngeal: Pharynx without any erythema edema. Tongue is midline without deviation. Buccal mucosa is moist without any masses or lesions NECK: Supple without any masses. Trachea midline no deviation. No JVD, no bruits are appreciated CARDIAC: Regular rhythm, regular rate. S1/S2 are heard. No murmurs gallops or rubs. LUNGS: Clear to auscultation bilaterally. No wheeze, rhonchi or rales. No use of accessory muscles on inspiration or expiration. ABDOMEN: Soft, nontender. Nondistended. Bowel sounds heard in all 4 quadrants. No organomegaly or masses. Negative rebound, negative guarding, Right CVA tenderness EXTREMITIES: No edema, pulses are equal bilaterally. No cyanosis or clubbing NEUROLOGY: Mood and affect appear appropriate. Cranial nerves II through XII grossly intact. Muscle strength 5/5 in upper and lower extremities bilaterally. Deep tendon reflexes are 2+ in upper and lower extremities bilaterally. Laboratory Laboratory Tests Test 07/05/16 07/05/16 07/05/16 07/05/16 16:30 17:15 19:30 21:50 Prothrombin Time 12.8 Prothromb Time International 1.2 Ratio Activated Partial 29.1 Thromboplast Time Sodium Level 130 Potassium Level 5.2 Chloride Level 90 Carbon Dioxide Level 18.7 Anion Gap 21 Blood Urea Nitrogen 72 Creatinine 7.80 Estimat Glomerular Filtration 5 Rate Random Glucose 70 Calcium Level 8.8 Total Bilirubin 0.2 Aspartate Amino Transf 14 (AST/SGOT) Alanine Aminotransferase 18 (ALT/SGPT) Alkaline Phosphatase 72 Total Protein 8.0 Albumin 3.5 Lipase 126 White Blood Count 9.9 Red Blood Count 4.03 Hemoglobin 11.1 Hematocrit 33.4 Mean Corpuscular Volume 83.0 Mean Corpuscular Hemoglobin 27.7 Mean Corpuscular Hemoglobin 33.3 Concent Red Cell Distribution Width 13.5 Platelet Count 189 Mean Platelet Volume 7.2 Neutrophils (%) (Auto) 72.7 Lymphocytes (%) (Auto) 21.4 Monocytes (%) (Auto) 5.3 Eosinophils (%) (Auto) 0.3 Basophils (%) (Auto) 0.3 Neutrophils # (Auto) 7.3 Lymphocytes # (Auto) 2.1 Monocytes # (Auto) 0.5 Eosinophils # (Auto) 0.0 Basophils # (Auto) 0.0 CBC Comment DIFF FINAL Differential Comment Urine Collection Type CLEAN CATCH Urine Color YELLOW Urine Turbidity CLOUDY Urine pH 5.5 Urine Specific [place] 1.015 Urine Protein 100 Urine Glucose (UA) NEG Urine Ketones NEG Urine Occult Blood MOD Urine Nitrite NEG Urine Bilirubin NEG Urine Leukocyte Esterase LARGE Urine RBC 0-3 Urine WBC 100-200 Urine WBC Clumps MOD Urine Bacteria MANY Microscopic Urinalysis Comment CULTURE INDICATED Lactic Acid Level 5.6 5.7 Test 07/06/16 07/06/16 07/06/16 07/06/16 06:35 08:10 09:40 10:30 White Blood Count 11.6 Red Blood Count 3.80 Hemoglobin 10.3 Hematocrit 31.7 Mean Corpuscular Volume 83.6 Mean Corpuscular Hemoglobin 27.1 Mean Corpuscular Hemoglobin 32.4 Concent Red Cell Distribution Width 13.3 Platelet Count 214 Mean Platelet Volume 8.0 Neutrophils (%) (Auto) 61.9 Lymphocytes (%) (Auto) 27.2 Monocytes (%) (Auto) 10.1 Eosinophils (%) (Auto) 0.4 Basophils (%) (Auto) 0.4 Neutrophils # (Auto) 7.2 Lymphocytes # (Auto) 3.1 Monocytes # (Auto) 1.2 Eosinophils # (Auto) 0.0 Basophils # (Auto) 0.0 CBC Comment DIFF FINAL Differential Comment Sodium Level 132 132 133 Potassium Level 5.4 5.4 5.2 Chloride Level 97 97 96 Carbon Dioxide Level 16.7 16.5 18.7 Anion Gap 18 19 18 Blood Urea Nitrogen 76 78 79 Creatinine 7.20 7.30 7.00 Estimat Glomerular Filtration 6 6 6 Rate Random Glucose 48 53 112 Calcium Level 7.5 7.6 8.0 Lactic Acid Level 2.2 2.5 Phosphorus Level 7.9 Urine Collection Type CATH Urine Color STRAW Urine Turbidity SLIGHTY CLOUDY Urine pH 5.5 Urine Specific [place] 1.008 Urine Protein 30 Urine Glucose (UA) NEG Urine Ketones NEG Urine Occult Blood SMALL Urine Nitrite NEG Urine Bilirubin NEG Urine Leukocyte Esterase MOD Urine RBC 0-3 Urine WBC 20-24 Urine Bacteria FEW Urine Hyaline Casts 0-2 Urine Fine Granular Casts 0-2 Urine Eosinophils NONE SEEN Urine Random Creatinine 34.8 Urine Random Sodium 63 Date/Time Procedure Status Source Growth 07/05/16 19:30 Aerobic Blood Culture - Preliminary Resulted Blood Peripheral NO GROWTH IN 1 DAY 07/05/16 19:30 Anaerobic Blood Culture - Preliminary Resulted Blood Peripheral NO GROWTH IN 1 DAY 07/05/16 17:15 Urine Culture - Preliminary Resulted Urine Catheterized Urine Gram Negative [place] Result Diagram: 07/06/16 0635 07/06/16 1530 Imaging Last Impressions Renal Ultrasound 07/06/16 0000 Signed Impressions: Service Date/Time: Wednesday, July 06, 2016 12:09 - CONCLUSION: Renal size and cortex are reasonably well-preserved. Mild dilatation of the right collecting system. José Miguel Feldman MD FACR Abdomen/Pelvis CT 07/05/16 1633 Signed Impressions: Service Date/Time: Tuesday, July 05, 2016 17:23 - CONCLUSION: No acute findings. Mild prominence of the renal pelvis on the left side is less prominent than on prior CT and there is no definite evidence of hydronephrosis. No calcified stones. No dilated loops of small or large bowel. Adiel Harmon MD Septic Shock Reassessment Heart: Irregular Lungs: Clear Skin: Warm, Moist Peripheral Pulses: Bounding Right Radial Bounding Left Radial Capillary Refill: Brisk, <2 seconds Assessment and Plan Problem List: (1) Acute renal failure ICD Code: N17.9 Status: Acute (2) Hypotension ICD Code: I95.9 Status: Acute (3) Lactic acid acidosis ICD Code: E87.2 Status: Acute (4) Prolongation of QRS complex on electrocardiography ICD Code: R94.31 Status: Acute (5) Dehydration ICD Code: E86.0 Status: Acute (6) Nausea & vomiting ICD Code: R11.2 Status: Acute (7) Hypoglycemia ICD Code: E16.2 Status: Acute (8) Hyperkalemia ICD Code: E87.5 Status: Acute (9) Hyperphosphatemia ICD Code: E83.39 Status: Acute (10) Urinary tract infection ICD Code: N39.0 Status: Acute (11) Diabetes ICD Code: E11.9 Status: Acute (12) Metabolic acidosis, increased anion gap ICD Code: E87.2 Status: Acute Assessment and Plan NEUROLOGY Chronic pain Continue monitor neurological function Continue pain control, patient's chronic medications have been adjusted in light of her acute condition PULMONOLOGY Continue O2 supplementation maintain O2 sats greater than 92% Incentive spirometry CARDIOLOGY Hypotension Widening of the QRS complex on EKG/telemetry History of hypertension Status post at least 3 L normal saline fluid done in emergency department, given other 1 L normal saline bolus at this time Status post 1 g calcium carbonate IV 2 EKG indicated sinus rhythm, IV conduction defect, inferior infarctage undetermined, possible anteroseptal infarctage undetermined, lateral ST-TT changes nonspecific. QRS interval 176 ms Trend cardiac enzymes Awaiting echocardiogram GASTROENTEROLOGY Nausea, vomiting Diabetic diet Protonix Continue Zofran, Compazine Discontinue Reglan Bowel regimen RENAL Acute renal failure Hyperkalemia Hyperphosphatemia Dehydration Metabolic acidosis with increased anion gap Nephrology consulted for recommendations Continue IV fluid, change to bicarbonate drip D50, insulin, Kayexalate Patient started on PhosLo Abdominal CT showed mild prominence of renal pelvis on the left side is less prominent than on prior CT with no definite evidence of hydronephrosis. Renal ultrasound shows renal size and cortex originally well preserved. Mild dilation of the right collecting system INFECTION DISEASE Urinary tract infection Lactic acid acidosis Patient started on empirical antibiotic Azactam Continue to monitor lactic acid which appears to be trending back up Previous urine cultures show Escherichia coli which is susceptible to Azactam, thus far cultures this time shows gram-negative salvador Blood cultures negative for 1 day HEMATOLOGY Anemia Continue monitor CBC, may need further evaluation if worsens ENDOCRINOLOGY Diabetes Hypoglycemia Accu-Cheks with sliding scale insulin Status post multiple amps of D50, patient started on D10 IV PROPHYLAXIS GI protection with Protonix Sequential compression devices LINES Peripheral IVs Critical care time 75 minutes excluding procedures Attestation Attending Attestation: I evaluated the patient today. I have read the documented H&P by Mr. Vega and agree with his findings. Together we discussed the patient's condition and formulated a joint care plan. I have reviewed and agree with the above documentation unless otherwise stated below. I personally saw and examined the patient, and my findings are below. In Brief: 56yF h/o multiple prior urologic procedures and chronic pain on chronic high- dose narcotics. had ureteral stents removed in clinic and ever since then has had increasing nausea, vomiting, fatigue. admitted with sepsis of urogenic source initially to floor. was hypotensive throughout the night and oliguric. this morning has significant oliguric RUTHY with almost no GFR. hyperkalemic with high concern over EKG changes associated. treated medically. Taken to the ICU and seen and examined by my PA. I evaluated the patient later in the afternoon. my physical exam is pertinent for a middle-aged female, sitting in bed, in no acute distress. not tachycardic. bp 117/60 on my exam. unlabored respirations. lungs clear. RRR. no peripheral edema. clear yellow urine in paul. significant + right sided costovertebral angle tenderness. lab data pertinent for persistence of lactic acid despite fluid resuscitation and a persistent anion gap metabolic acidosis. K stable 5.5. Cr stable. urine culture growing GNRs. Assessment: 56yF with acute pyelonephritis and severe sepsis, now starting to resolve. Plan: neuro: decrease oral morphine to adjust for GFR resp: wean o2 by nc. oob with PT. cv: monitor on tele. goal map > 65 for renal perfusion. may require vasopressors. renal: q1h uop. paul. nephro consult. no emergent indication for [employer] at this time. serial K's. kayexalate. phos binder. daily bmp, mg,phos. continue bicarb drip at 100cc/hr. fen/gi: renal diet as zen. d/c compazine and reglan given widened qrs. electrolytes as above. heme/id: aztreonam. f/u cultures. daily cbc endo: q1h glucose checks while hypoglycemic. will wean d10w as tolerated. goal bg > 100 prophy: sqh, ppi lines: piv's. may require cvl. will re-eval. dispo: remain in the ICU. Problem Qualifiers (1) Nausea & vomiting: Qualified Code: R11.2 - Nausea and vomiting, intractability of vomiting not specified, unspecified vomiting type (2) Urinary tract infection: Qualified Code: N39.0 - Urinary tract infection without hematuria, site unspecified (3) Diabetes: Qualified Code: E11.8 - Type 2 diabetes mellitus with complication, without long-term current use of insulin Elliott Vega Jul 06, 2016 14:42 Angel Chow MD Jul 06, 2016 16:38
[2016-07-06 15:48] LABS: CHLORIDE 98 MEQ/L (98-107); POTASSIUM 5.5 MEQ/L (3.5-5.1); SODIUM (NA) 132 MEQ/L (136-145)
[2016-07-06 15:51] LABS: ANION GAP 17 MEQ/L (5-15); BICARBONATE 17.2 MEQ/L (21.0-32.0); BLOOD UREA NITROGEN 75 MG/DL (7-18)
[2016-07-06 15:54] LABS: GLOMERULAR FILTRATION RATE 6 ML/MIN (>89)
[2016-07-06 16:07] LABS: CREATINE KINASE 71 U/L (26-192)
[2016-07-06 19:07] LABS: LACTIC ACID GHOST NOT REPORTABLE
[2016-07-06] MEDS: AZTREONAM INJ 1,000 MG in SODIUM CHLORIDE 0.9% INJ 100 ML IV SCH (20:28)
[2016-07-06] MEDS: ATORVASTATIN 10 MG TAB PO SCH (20:29)
[2016-07-06] MEDS: HEPARIN SODIUM - SQ 10,000 UNITS/ML VIAL SQ SCH (20:30)
--- NOTE | 2016-07-06 20:36 | HHI.NPPN ---
Subjective General Problems: Anemia, Mebatolic Acidosis Renal Failure: Acute History of Present Illness 56-year-old female with past medical history of ureteral obstruction with history of stent placement following with urology, history of anxiety and depression, hyperlipidemia, diabetes mellitus, came to the hospital because of nausea and vomiting, generalized weakness and urinary retention. The patient has elevated BUN and creatinine. The patient had a previous creatinine of 0.9. This was in March of last year and now he came in with a BUN of 72, creatinine of 7.8. Additional Remarks Patient is alert, no SOB, no abd. pain. Objective Data Data 07/05/16 07/06/16 19:00 07:00 Intake Total 2000 ml 580 ml Balance 2000 ml 580 ml Intake Oral 580 ml IV Total 2000 ml # Voids 2 # Bowel Movements 0 Vital Signs Date Time Temp Pulse Resp B/P Pulse Ox O2 Delivery O2 Flow Rate FiO2 07/06/16 18:00 70 10 112/49 96 07/06/16 18:00 70 07/06/16 17:00 70 12 113/48 96 07/06/16 16:30 70 07/06/16 16:00 98.7 70 23 118/51 96 07/06/16 16:00 70 07/06/16 16:00 70 07/06/16 15:39 70 07/06/16 15:39 70 19 111/52 07/06/16 15:30 70 07/06/16 15:00 70 10 115/45 07/06/16 15:00 70 07/06/16 14:30 70 20 114/47 07/06/16 14:30 70 07/06/16 14:00 70 14 118/48 07/06/16 14:00 70 07/06/16 14:00 70 07/06/16 13:30 68 6 118/44 07/06/16 13:30 68 07/06/16 13:00 70 22 114/46 07/06/16 13:00 70 07/06/16 12:30 68 9 104/46 07/06/16 12:30 68 07/06/16 12:00 68 07/06/16 12:00 97.8 68 7 104/39 99 07/06/16 12:00 68 07/06/16 11:30 68 16 113/46 100 07/06/16 11:30 68 07/06/16 11:00 72 17 97/34 94 07/06/16 11:00 72 07/06/16 10:30 70 24 111/44 97 07/06/16 10:30 70 07/06/16 10:00 78 18 107/47 93 07/06/16 10:00 78 07/06/16 10:00 78 07/06/16 09:30 78 07/06/16 09:30 78 6 107/45 95 07/06/16 09:00 80 15 117/48 94 07/06/16 09:00 80 07/06/16 08:41 82 9 110/44 97 07/06/16 08:41 82 07/06/16 08:32 78 07/06/16 08:32 78 07/06/16 08:30 78 17 111/52 07/06/16 07:41 77 16 99/49 07/06/16 04:00 96.8 77 18 88/48 98 07/06/16 00:00 97.0 72 18 109/42 100 07/05/16 22:00 96.9 75 18 109/58 97 07/05/16 21:51 78 16 127/72 Room Air -: 07/06/16 0635 07/06/16 1530 Physical Exam General Appearance: No Acute Distress, Comfortable Eyes Eye Exam: Pupils Equal Throat Throat Exam: Oral Mucosa [place] & Moist Neck Neck Exam: Neck Supple Pulmonary Resp Exam: Clear Bilaterally, Breath Sounds Equal, No Distress, Decreased Bases Cardiology CV Exam: Regular Gastrointestinal/Abdomen GI Exam: Soft, Non-Tender, Bowel Sounds Present Extremeties Extremities Exam: No Edema Neurologic Neuro Exam: Alert, Awake, Oriented Psychiatric Psych Exam: Appropriate Responses Assessment/Plan Assessment Summary: RUTHY/Acute Renal Failure Electrolyte Assessment: Hyperkalemia, Metabolic Acidosis Problem List: (1) DM (diabetes mellitus) (2) Dehydration (3) UTI (urinary tract infection) (4) Hyperkalemia (5) Lactic acid acidosis (6) Hypotension (7) Acute renal failure Plan Patient has been non oliguric. BP is better now. Creatinine and BUN almost same. K was 5.5 and got the treatment. Po4 was also elevated. Urine Na. is normal and Eosinophils negative. Most likely has ATN. Continue IVF and antibiotics. If continue to get worse,may will need HD. Blood cultures negative so far. D/W the patient and . Problem Qualifiers (1) DM (diabetes mellitus): (2) UTI (urinary tract infection): Qualified Code: N30.00 - Acute cystitis without hematuria (3) Acute renal failure: Qualified Code: N17.1 - Acute renal failure with acute cortical necrosis Katerina Evans MD Jul 06, 2016 20:36
--- NOTE | 2016-07-06 20:54 | EKG ---
Date Performed: 07/06/2016 Time Performed: 08:42:54 PTAGE: 56 years EKG: Sinus rhythm . Left axis deviation IV conduction defect Inferior infarct - age undetermined Possible anteroseptal infarct - age undetermined Lateral ST-T changes are nonspecific Abnormal ECG PREVIOUS TRACING : 12/17/2015 16.28 DOCTOR: Sabrina Partida Interpretating Date/Time 07/06/2016 20:52:31
[2016-07-06] MEDS: ONDANSETRON HCL 4 MG/2 ML VIAL IVP PRN (21:00)
--- NOTE | 2016-07-06 21:11 | PD.CONS ---
HPI Service Urology Consult Requested By Reason for Consult Hx pyeloplasty, UTI Primary Care Physician Shayna Aguilera MD Diagnosis: (1) Acute renal failure ICD Code: N17.9 (2) Hypotension ICD Code: I95.9 (3) Lactic acid acidosis ICD Code: E87.2 (4) Prolongation of QRS complex on electrocardiography ICD Code: R94.31 (5) Dehydration ICD Code: E86.0 (6) Nausea & vomiting ICD Code: R11.2 (7) Hyperkalemia ICD Code: E87.5 (8) Hyperphosphatemia ICD Code: E83.39 (9) Urinary tract infection ICD Code: N39.0 (10) Diabetes ICD Code: E11.9 (11) Hypoglycemia ICD Code: E16.2 History of Present Illness 56 yo male with history of DM and HTN s/p right robotic pyeloplasty with Dr. Owen in March 2016 now admitted with RUTHY with Cr over 7.0. Patient reports she had been doing well until about yesterday where she began to have general malaise without any particular pain or fevers. She also states minimal to no urine output the last day or so. Her Cr was found be over 7.0, however her CT scan did not identify any abnnormalities, no evidence of stones, no obstruction , no hydronephrosis. She is currently without pain, nor did he develop any fevers. Since admit, her Cr improved with Hydration to 6.6. She recently had her right ureteral stent removed in May 2015, however has been doing well since then. No hematuria, no dysuria. Review of Systems ROS Limitations: Clinical Condition Constitutional: DENIES: Fever Endocrine: DENIES: Polyuria Eyes: DENIES: Blurred vision Ears, nose, mouth, throat: DENIES: Hearing loss Respiratory: DENIES: Apneas, Cough Cardiovascular: DENIES: Chest pain Gastrointestinal: DENIES: Abdominal pain, Nausea, Vomiting Genitourinary: DENIES: Urinary frequency, Hematuria, Dysuria Musculoskeletal: DENIES: Back pain Integumentary: DENIES: Rash Neurologic: DENIES: Headache Psychiatric: DENIES: Anxiety Except as stated in HPI: all other systems reviewed are Neg Past Family Social History Past Medical History Hypertension Diabetes Chronic pain History kidney stones History ventricular tachycardia Thoracic outlet syndrome Past Surgical History Appendectomy Cholecystectomy Tubal ligation Hysterectomy Ureteral stent placement Urethral stent exchange Multiple surgeries to bilateral lower extremities 3 rotator cuff surgeries Right anterior chest surgery Carpal tunnel surgery Cardiac catheterization Right jaw surgery Neurostimulator L4-S1 fusion Tear duct surgeries Rhizotomies Right dismembered pyeloplasty Reported Medications Reported Meds & Active Scripts Active Glipizide 10 Mg Tab 10 Mg PO BIDAC Take 30 minutes before a meal Xanax (Alprazolam) 1 Mg Tab 1 Mg PO Q6H PRN May fill 05/02 Phenergan (Promethazine HCl) 50 Mg Tab 50 Mg PO Q6H PRN Omeprazole 20 Mg Tab 20 Mg PO DAILY Lactulose Liq (Lactulose) 10 Gm/15 Ml Soln 30 Ml PO TID Atenolol 50 Mg Tab 50 Mg PO BID Atorvastatin (Atorvastatin Calcium) 10 Mg Tab 10 Mg PO HS Gabapentin 800 Mg Tab 800 Mg PO QID Lasix (Furosemide) 40 Mg Tab 40 Mg PO DAILY Potassium Chloride CR (Potassium Chloride) 10 Meq Tab 10 Meq PO DAILY Zofran (Ondansetron HCl) 4 Mg Tab 4 Mg PO Q12HR PRN D3 2000 (Cholecalciferol) 2,000 Unit Tab 1 Tab PO DAILY Morphine IR (Morphine Sulfate) 15 Mg Tab 15 Mg PO Q4H PRN Amitriptyline (Amitriptyline HCl) 150 Mg Tab 150 Mg PO HS Elavil (Amitriptyline HCl) 25 Mg Tab 150 Tab PO HS Reported Metformin (Metformin HCl) 1,000 Mg Tab 2,500 Mg PO BID With a meal Soma (Carisoprodol) 250 Mg Tab 250 Mg PO TID PRN Lidocare Back/Shoulder (Lidocaine) 4 % Pad 1 Pad TOPICAL DAILY PRN Nitrostat SL (Nitroglycerin) 0.4 Mg Subl 0.4 Mg SL DIRECTED PRN ONE TABLET UNDER THE TONGUE NEEDED FOR CHEST PAIN, MAY REPEAT EVERY FIVE MINUTES FOR A TOTAL OF 3 DOSES OR CALL 911 IF NO RELIEF Ms Contin (Morphine Sulfate) 60 Mg Tab 60 Mg PO Q8H Reglan (Metoclopramide HCl) 10 Mg Tab 10 Mg PO TIDAC PRN Allergies: Coded Allergies: Adhesives (Verified Allergy, Severe, hives short period of time only is fine, 07/05/16) IV TAPES ARE OK Epinephrine (Verified Allergy, Severe, INCREASED SVT'S, 07/05/16) Shellfish (Verified Allergy, Severe, Hives, 07/05/16) Amoxicillin (Verified Allergy, Mild, CHEST TIGHTNESS, 07/05/16) Caffeine (Verified Adverse Reaction, Severe, SVT, 07/05/16) Codeine (Verified Adverse Reaction, Severe, IRREGULAR HEARTRATE, 07/05/16) Zanaflex (Verified Adverse Reaction, Severe, Hallucinations. , 07/05/16) Augmentin (Verified Adverse Reaction, Intermediate, [place] bad, chest felt funny, nauseated, 07/05/16) Active Ordered Medications Current Medications Medications (Trade) Dose Ordered Sig/Kimmy Route Start Time Stop Time Status Last Admin (NS Flush) 2 ml UNSCH PRN IV FLUSH 07/05/16 19:00 (NS Flush) 2 ml BID IV FLUSH 07/05/16 21:00 07/06/16 20:29 (Tylenol) 650 mg Q4H PRN PO 07/05/16 19:00 (Zofran Inj) 4 mg Q6H PRN IVP 07/05/16 19:00 07/06/16 21:00 (Compazine Supp) 25 mg Q12H PRN RECTAL 07/05/16 19:00 Hold (Colace) 100 mg Q12H PO 07/05/16 21:00 07/06/16 20:29 (Milk Of Magnesia Liq) 30 ml Q12H PRN PO 07/05/16 19:00 ([place] 5-325 Mg) 1 tab Q4H PRN PO 07/05/16 19:00 07/06/16 13:06 (Morphine Inj) 2 mg Q3H PRN IV 07/05/16 19:00 07/06/16 15:50 (Narcan Inj) 0.4 mg UNSCH PRN IV 07/05/16 19:00 (Lipitor) 10 mg HS PO 07/05/16 21:00 (Protonix) 20 mg DAILY PO 07/06/16 09:00 07/06/16 10:17 (D50w (Vial) Inj) 25 ml UNSCH PRN IV PUSH 07/05/16 19:00 07/06/16 09:51 Glucagon 1 mg 1 mg UNSCH PRN OTHER 07/05/16 19:00 Aztreonam 1000 mg/ Sodium Chloride 100 ml @ 200 mls/hr Q24H IV 07/06/16 20:00 07/06/16 20:28 (Sodium Bicarbonate 8.4% Inj/04/07 NS 1000 ml Inj) 1,075 ml @ 100 mls/hr [id number] IV 07/06/16 10:00 07/06/16 20:28 (Xanax) 0.5 mg Q8H PRN PO 07/06/16 15:00 07/06/16 13:05 (Oramorph Sr) 60 mg Q12HR PO 07/06/16 21:00 07/06/16 20:30 Calcium Acetate 2668 mg 2,668 mg TID PO 07/06/16 13:00 07/06/16 13:05 (D10w Inj) 1,000 ml @ 42 mls/hr [id number] IV 07/06/16 11:00 07/06/16 11:00 (Heparin Inj) 5,000 units Q12HR SQ 07/06/16 21:00 07/06/16 20:30 Family History Family history reviewed an non contributory to present illness Social History No ETOH or Tobacco Physical Exam Vital Signs Date Time Temp Pulse Resp B/P Pulse Ox O2 Delivery O2 Flow Rate FiO2 07/06/16 18:00 70 10 112/49 96 07/06/16 18:00 70 07/06/16 17:00 70 12 113/48 96 07/06/16 16:30 70 07/06/16 16:00 98.7 70 23 118/51 96 07/06/16 16:00 70 07/06/16 16:00 70 07/06/16 15:39 70 07/06/16 15:39 70 19 111/52 07/06/16 15:30 70 07/06/16 15:00 70 10 115/45 07/06/16 15:00 70 07/06/16 14:30 70 20 114/47 07/06/16 14:30 70 07/06/16 14:00 70 14 118/48 07/06/16 14:00 70 07/06/16 14:00 70 07/06/16 13:30 68 6 118/44 07/06/16 13:30 68 07/06/16 13:00 70 22 114/46 07/06/16 13:00 70 07/06/16 12:30 68 9 104/46 07/06/16 12:30 68 07/06/16 12:00 68 07/06/16 12:00 97.8 68 7 104/39 99 07/06/16 12:00 68 07/06/16 11:30 68 16 113/46 100 07/06/16 11:30 68 07/06/16 11:00 72 17 97/34 94 07/06/16 11:00 72 07/06/16 10:30 70 24 111/44 97 07/06/16 10:30 70 07/06/16 10:00 78 18 107/47 93 07/06/16 10:00 78 07/06/16 10:00 78 07/06/16 09:30 78 07/06/16 09:30 78 6 107/45 95 07/06/16 09:00 80 15 117/48 94 07/06/16 09:00 80 07/06/16 08:41 82 9 110/44 97 07/06/16 08:41 82 07/06/16 08:32 78 07/06/16 08:32 78 07/06/16 08:30 78 17 111/52 07/06/16 07:41 77 16 99/49 07/06/16 04:00 96.8 77 18 88/48 98 07/06/16 00:00 97.0 72 18 109/42 100 07/05/16 22:00 96.9 75 18 109/58 97 07/05/16 21:51 78 16 127/72 Room Air Physical Exam GENERAL: This is a well-nourished, well-developed patient, in no apparent distress. SKIN: No rashes, ecchymoses or lesions. Cool and dry. HEAD: Atraumatic. Normocephalic. EYES: Extraocular motions intact. No scleral icterus. No injection or drainage. ENT: Nose without bleeding, purulent drainage. Airway patent. NECK: Trachea midline. No JVD or lymphadenopathy. CARDIOVASCULAR: Normal pulses, RESPIRATORY: nonlabored GASTROINTESTINAL: Abdomen soft, non-tender, nondistended. Small laproscopic incision noted healed well GENITOURINARY: Andrews in place with clear yellow urine MUSCULOSKELETAL: Extremities without clubbing, cyanosis, or edema. NEUROLOGICAL: Awake and alert. Motor and sensory grossly within normal limits. Normal speech. Laboratory Tests Test 07/05/16 07/06/16 07/06/16/2/17 21:50 06:35 08:10 09:40 Lactic Acid Level 5.7 2.2 White Blood Count 11.6 Red Blood Count 3.80 Hemoglobin 10.3 Hematocrit 31.7 Mean Corpuscular Volume 83.6 Mean Corpuscular Hemoglobin 27.1 Mean Corpuscular Hemoglobin 32.4 Concent Red Cell Distribution Width 13.3 Platelet Count 214 Mean Platelet Volume 8.0 Neutrophils (%) (Auto) 61.9 Lymphocytes (%) (Auto) 27.2 Monocytes (%) (Auto) 10.1 Eosinophils (%) (Auto) 0.4 Basophils (%) (Auto) 0.4 Neutrophils # (Auto) 7.2 Lymphocytes # (Auto) 3.1 Monocytes # (Auto) 1.2 Eosinophils # (Auto) 0.0 Basophils # (Auto) 0.0 CBC Comment DIFF FINAL Differential Comment Sodium Level 132 132 Potassium Level 5.4 5.4 Chloride Level 97 97 Carbon Dioxide Level 16.7 16.5 Anion Gap 18 19 Blood Urea Nitrogen 76 78 Creatinine 7.20 7.30 Estimat Glomerular Filtration 6 6 Rate Random Glucose 48 53 Calcium Level 7.5 7.6 Phosphorus Level 7.9 Urine Collection Type CATH Urine Color STRAW Urine Turbidity SLIGHTY CLOUDY Urine pH 5.5 Urine Specific [place] 1.008 Urine Protein 30 Urine Glucose (UA) NEG Urine Ketones NEG Urine Occult Blood SMALL Urine Nitrite NEG Urine Bilirubin NEG Urine Leukocyte Esterase MOD Urine RBC 0-3 Urine WBC 20-24 Urine Bacteria FEW Urine Hyaline Casts 0-2 Urine Fine Granular Casts 0-2 Urine Eosinophils NONE SEEN Urine Random Creatinine 34.8 Urine Random Sodium 63 Test 07/06/16 07/06/16 07/06/16 07/06/16 10:30 15:30 17:06 19:35 Sodium Level 133 132 Potassium Level 5.2 5.5 Chloride Level 96 98 Carbon Dioxide Level 18.7 17.2 Anion Gap 18 17 Blood Urea Nitrogen 79 75 Creatinine 7.00 6.60 Estimat Glomerular Filtration 6 6 Rate Random Glucose 112 135 Lactic Acid Level 2.5 2.2 1.7 Calcium Level 8.0 7.7 Total Creatine Kinase 71 Troponin I LESS THAN 0.02 Date/Time Procedure Status Source Growth 07/05/16 19:30 Aerobic Blood Culture - Preliminary Resulted Blood Peripheral NO GROWTH IN 1 DAY 07/05/16 19:30 Anaerobic Blood Culture - Preliminary Resulted Blood Peripheral NO GROWTH IN 1 DAY 07/05/16 17:15 Urine Culture - Preliminary Resulted Urine Catheterized Urine Gram Negative [place] Result Diagram: 07/06/16 0635 07/06/16 1530 Personally reviewed images: Yes Imaging Last Impressions Renal Ultrasound 07/06/16 0000 Signed Impressions: Service Date/Time: Wednesday, July 06, 2016 12:09 - CONCLUSION: Renal size and cortex are reasonably well-preserved. Mild dilatation of the right collecting system. José Miguel Feldman MD FACR Abdomen/Pelvis CT 07/05/16 1633 Signed Impressions: Service Date/Time: Tuesday, July 05, 2016 17:23 - CONCLUSION: No acute findings. Mild prominence of the renal pelvis on the left side is less prominent than on prior CT and there is no definite evidence of hydronephrosis. No calcified stones. No dilated loops of small or large bowel. Adiel Harmon MD Assessment and Plan Problem List: (1) Renal failure ICD Code: N19 Status: Acute Assessment and Plan -Improvement in her Cr since admit. Continue IV Hydration -No evidence of obstruction. No immediate surgical intervention indicated at this time -Clinical status unlikley associated with her pyeloplasty -Continue to follow-up closely Problem Qualifiers (1) Acute renal failure: Qualified Code: N17.1 - Acute renal failure with acute cortical necrosis (2) Nausea & vomiting: Qualified Code: R11.2 - Nausea and vomiting, intractability of vomiting not specified, unspecified vomiting type (3) Urinary tract infection: Qualified Code: N39.0 - Urinary tract infection without hematuria, site unspecified (4) Diabetes: Qualified Code: E11.8 - Type 2 diabetes mellitus with complication, without long-term current use of insulin Brad Chacon MD Jul 06, 2016 21:10
[2016-07-06 22:59] LABS: ANION GAP 14 MEQ/L (5-15); BICARBONATE 21.1 MEQ/L (21.0-32.0); BLOOD UREA NITROGEN 72 MG/DL (7-18); CHLORIDE 98 MEQ/L (98-107); CREATINE KINASE 63 U/L (26-192); GLOMERULAR FILTRATION RATE 8 ML/MIN (>89); POTASSIUM 4.6 MEQ/L (3.5-5.1); SODIUM (NA) 133 MEQ/L (136-145)
--- NOTE | 2016-07-06 23:00 | EC ---
Study Study Date:07/06/2016 STUDY CONCLUSIONS SUMMARY - Left ventricle: The cavity size was normal. Wall thickness was normal. Systolic function was normal. The estimated ejection fraction was in the range of 55% to 60%. Wall motion was normal; there were no regional wall motion abnormalities. The study is not technically sufficient to allow evaluation of LV diastolic function. - Mitral valve: Mild regurgitation. - Pulmonary arteries: PA peak pressure: 35mm Hg (S). If LV function is below 40, please consider prescribing an ACEI or ARB or document rationale for non-use. PROCEDURE DATA STUDY STATUS: Elective. Procedure: Transthoracic echocardiography. Image quality was good. Scanning was performed from the parasternal, apical, and subcostal acoustic windows. Study completion: The patient tolerated the procedure well. Transthoracic echocardiography. M-mode, complete 2D, complete spectral Doppler, and color Doppler. Patient status: Inpatient. CARDIAC ANATOMY LEFT VENTRICLE: The cavity size was normal. Wall thickness was normal. Systolic function was normal. The estimated ejection fraction was in the range of 55% to 60%. Wall motion was normal; there were no regional wall motion abnormalities. The study is not technically sufficient to allow evaluation of LV diastolic function. AORTIC VALVE: Trileaflet; normal thickness leaflets. Doppler: Transvalvular velocity was within the normal range. There was no stenosis. No regurgitation. AORTA: Aortic root: The aortic root was normal in size. MITRAL VALVE: Structurally normal valve. Doppler: Transvalvular velocity was within the normal range. There was no evidence for stenosis. Mild regurgitation. Peak gradient: 3mm Hg (D). LEFT ATRIUM: The atrium was normal in size. RIGHT VENTRICLE: The cavity size was normal. Wall thickness was normal. Systolic pressure was within the normal range. PULMONIC VALVE: Doppler: Transvalvular velocity was within the normal range. There was no evidence for stenosis. No regurgitation. TRICUSPID VALVE: Structurally normal valve. Doppler: Transvalvular velocity was within the normal range. No regurgitation. PULMONARY ARTERY: The main pulmonary artery was normal-sized. Systolic pressure was within the normal range. RIGHT ATRIUM: The atrium was normal in size. PERICARDIUM: There was no pericardial effusion. SYSTEMIC VEINS: Inferior vena cava: The vessel was normal in size. BASIC MEASUREMENTS ADULT Normal Left ventricle LV internal dimension, ED, chordal level, *40.6 mm 43-52 PLAX LV internal dimension, ES, chordal level, 33.3 mm 23-38 PLAX Fractional shortening, chordal level, PLAX *18 % >29 LV posterior wall thickness, ED 13.8 mm IVS/LVPW ratio, ED 0.75 <1.3 Ventricular septum Septal thickness, ED 10.3 mm Aortic valve Leaflet separation 23 mm 15-26 Right ventricle RV internal dimension, ED, PLAX 26.9 mm 19-38 BASIC MEASUREMENTS ADULT Normal Aortic valve Leaflet separation 23 mm 15-26 Aorta Root diameter, ED 27 mm 20-37 Left atrium Anterior-posterior dimension, ES *43 mm 19-40 LA/aortic root ratio 1.59 DOPPLER MEASUREMENTS ADULT Normal Main pulmonary artery Pressure, S *35 mm Hg =30 Mitral valve Peak E-wave velocity 80 cm/s Peak A-wave velocity 74.5 cm/s Peak gradient, D 3 mm Hg Peak E/A ratio 1.1 Tricuspid valve Regurgitant peak velocity 248 cm/s Peak RV-RA gradient, S 25 mm Hg Maximal regurgitant velocity 248 cm/s Systemic veins Estimated CVP 10 mm Hg Right ventricle RV pressure, S *35 mm Hg <30 LEGEND: Mean values are shown as u=mean value. Asterisk (*) carlos values outside specified normal range. Prepared and signed by Sabrina Partida [id number]
[2016-07-07] VITALS (19 sets, daily range): BP systolic 91–133; BP diastolic 34–78; PULSE 68–80; RESP 5–26; TEMP 96.8–98.7; O2SAT 90–97
[2016-07-07] MEDS: ACETAMINOPHEN/HYDROcodone 325 MG/5 MG TAB PO PRN (01:07)
[2016-07-07] MEDS: CHLORHEXIDINE GLUCONATE 2 % 1 PACK (2 CLOTHS)(taper/protocol) TOPICAL SCH (04:00)
[2016-07-07 05:13] LABS: POTASSIUM 4.3 MEQ/L (3.5-5.1)
[2016-07-07] MEDS ORDERED: CHLORHEXIDINE GLUCONATE 2 % 1 PACK (2 CLOTHS)(extra cloths) TOPICAL PRN (05:15)
[2016-07-07 05:16] LABS: BICARBONATE 24.3 MEQ/L (21.0-32.0)
[2016-07-07] MEDS: ALPRAZolam 0.5 MG TAB PO PRN ×2 (06:11→14:19)
[2016-07-07] MEDS: SODIUM CHLOR 0.45% 1000 ML INJ 1,000 ML IV SCH ×2 (06:15→17:10)
--- NOTE | 2016-07-07 06:18 | HHI.CCPN ---
Subjective Remarks/Hospital Course Hospital Course: 56yF admitted with acute kidney injury and acute pyelonephritis and severe sepsis, initially on the floor, taken to ICU for persistent hypotension and end- organ dysfunction with lactic acidosis. Subjective: 07/07: today, much improved. Cr downtrending. made 4L urine yesterday. urine not speciated yet, but clinically appears improved. she does complain of slight residual nausea and constipation Objective Vital Signs Date Time Temp Pulse Resp B/P Pulse Ox O2 Delivery O2 Flow Rate FiO2 07/07/16 06:00 78 07/07/16 05:38 26 121/49 96 07/07/16 04:28 96.8 07/05/16 21:51 Room Air Intake and Output 07/06/16 07/06/16 07/07/16 08:00 16:00 00:00 Intake Total 580 ml 8796 ml Output Total 200 ml 3850 ml Balance 380 ml 4946 ml Result Diagram: 07/06/16 0635 07/07/16 0450 Imaging Last Impressions Renal Ultrasound 07/06/16 0000 Signed Impressions: Service Date/Time: Wednesday, July 06, 2016 12:09 - CONCLUSION: Renal size and cortex are reasonably well-preserved. Mild dilatation of the right collecting system. José Miguel Feldman MD FACR Abdomen/Pelvis CT 07/05/16 1633 Signed Impressions: Service Date/Time: Tuesday, July 05, 2016 17:23 - CONCLUSION: No acute findings. Mild prominence of the renal pelvis on the left side is less prominent than on prior CT and there is no definite evidence of hydronephrosis. No calcified stones. No dilated loops of small or large bowel. Adiel Harmon MD Objective Remarks gen: middle-aged female, lying in bed, no acute distress heent: NC. AT. PERRL. Mucous membranes moist neck: no jvd. trachea midline. chest: unlabored. equal chest rise. clear to auscultation cv: normal rate, regular rhythm. no appreciable murmurs abd: soft, nontender, nondistended. no guarding extr: no peripheral edema. distal pulses 2+ neuro: RASS 0. oriented x 3. follows commands. A/P Problem List: (1) Acute renal failure ICD Code: N17.9 Status: Acute (2) Hypotension ICD Code: I95.9 Status: Acute (3) Lactic acid acidosis ICD Code: E87.2 Status: Resolved (4) Prolongation of QRS complex on electrocardiography ICD Code: R94.31 Status: Acute (5) Dehydration ICD Code: E86.0 Status: Resolved (6) Nausea & vomiting ICD Code: R11.2 Status: Acute (7) Hypoglycemia ICD Code: E16.2 Status: Resolved (8) Hyperkalemia ICD Code: E87.5 Status: Acute (9) Hyperphosphatemia ICD Code: E83.39 Status: Acute (10) Urinary tract infection ICD Code: N39.0 Status: Acute (11) Diabetes ICD Code: E11.9 Status: Acute (12) Metabolic acidosis, increased anion gap ICD Code: E87.2 Status: Resolved Assessment and Plan Assessment: 56yF with Acute pyelonephritis and severe sepsis with associated acute kidney injury and hypoglycemia. These are resolving. we will d/c her sodium bicarbonate and dextrose solutions today. normalize her. given her nausea , I will leave her on mivf for today. F/u cultures. continue abx. she is clinically improving. NEUROLOGY Chronic pain Continue monitor neurological function continue current dosing of MSContin, as her renal function improves, will need to go back up to home dose. PULMONOLOGY Continue O2 supplementation maintain O2 sats greater than 92% Incentive spirometry --OOB, ambulating, PT consult CARDIOLOGY Severe Sepsis- resolved Widening of the QRS complex on EKG/telemetry History of hypertension trops neg x 2. will stop trending. Awaiting echocardiogram GASTROENTEROLOGY Nausea, vomiting- resolving. Diabetic diet Protonix Continue Zofran Increase Bowel regimen RENAL Acute kidney injury Hyperkalemia Hyperphosphatemia Dehydration- resolved. Metabolic acidosis with increased anion gap- resolved. Nephrology following. d/c sodium bicarbonate infusion. --given her nausea, will keep 1/2 NS @ 84cc/hr running to prevent hypovolemia for today. Continue PhosLo until serial phos start downtrending. Abdominal CT showed mild prominence of renal pelvis on the left side is less prominent than on prior CT with no definite evidence of hydronephrosis. Renal ultrasound shows renal size and cortex originally well preserved. Mild dilation of the right collecting system INFECTION DISEASE Urinary tract infection Acute Pyelonephritis Lactic acid acidosis- resolved. Continue aztreonam --f/u urine cultures:GNR HEMATOLOGY Anemia secondary to chronic disease Continue monitor CBC, may need further evaluation if worsens --does not meet transfusion triggers at this time. ENDOCRINOLOGY Diabetes Hypoglycemia- resolved. d/c d10w --liberalize accuchecks to q4h PROPHYLAXIS GI protection with Protonix (home med) Sequential compression devices, SQH LINES Peripheral IVs dispo: stable for transfer to floor. will consult hospitalist. Problem Qualifiers (1) Acute renal failure: Qualified Code: N17.1 - Acute renal failure with acute cortical necrosis (2) Nausea & vomiting: Qualified Code: R11.2 - Nausea and vomiting, intractability of vomiting not specified, unspecified vomiting type (3) Urinary tract infection: Qualified Code: N39.0 - Urinary tract infection without hematuria, site unspecified (4) Diabetes: Qualified Code: E11.8 - Type 2 diabetes mellitus with complication, without long-term current use of insulin Angel Chow MD Jul 07, 2016 06:18
[2016-07-07] MEDS: INSULIN ASPART SUPPLEMENTAL SCALE SQ SCH ×4 (07:00→21:00)
[2016-07-07 08:43] LABS: MAGNESIUM 1.7 MG/DL (1.5-2.5)
[2016-07-07] MEDS: MORPHINE SULFATE 60 MG CONTROLLED RELEASE TAB PO SCH ×2 (09:15→21:09)
[2016-07-07] MEDS: HEPARIN SODIUM - SQ 10,000 UNITS/ML VIAL SQ SCH ×2 (09:15→21:13)
[2016-07-07] MEDS: DOCUSATE SODIUM 100 MG CAP PO SCH ×2 (09:15→21:09)
[2016-07-07] MEDS: DOCUSATE SODIUM 50 MG/SENNA 8.6 MG TAB PO SCH ×2 (09:16→21:10)
[2016-07-07] MEDS: PANTOPRAZOLE SOD 20 MG DELAYED RELEASE TAB PO SCH (09:16)
[2016-07-07] MEDS: BISACODYL 10 MG SUPP RECTAL SCH (09:16)
[2016-07-07] MEDS: LACTULOSE SYRUP 20 GM/30 ML CUP PO SCH ×2 (09:16→21:10)
[2016-07-07] MEDS: POLYETHYLENE GLYCOL 17 GM PKG PO SCH ×2 (09:16→21:16)
[2016-07-07] MEDS: CALCIUM ACETATE 667 MG CAP PO SCH ×3 (09:16→17:09)
[2016-07-07] MEDS: SODIUM CHLORIDE 0.9% FLUSH 10 ML FLUSH IV FLUSH SCH ×2 (09:17→21:00)
[2016-07-07] MEDS: ONDANSETRON HCL 4 MG/2 ML VIAL IVP PRN (13:51)
--- NOTE | 2016-07-07 16:07 | HHI.NPPN ---
Subjective General Problems: Anemia, Mebatolic Acidosis Renal Failure: Acute History of Present Illness 56-year-old female with past medical history of ureteral obstruction with history of stent placement following with urology, history of anxiety and depression, hyperlipidemia, diabetes mellitus, came to the hospital because of nausea and vomiting, generalized weakness and urinary retention. The patient has elevated BUN and creatinine. The patient had a previous creatinine of 0.9. This was in March of last year and now he came in with a BUN of 72, creatinine of 7.8. Additional Remarks Patient is alert, feeling better, no dizziness, no SOB. Objective Data Data 07/06/16 07/07/16 19:00 07:00 Intake Total 4233 ml 5937 ml Output Total 1600 ml 5450 ml Balance 2633 ml 487 ml Intake Oral 960 ml 1070 ml IV Total 3273 ml 4867 ml Output Urine Total 1600 ml 5450 ml # Bowel Movements 0 0 Vital Signs Date Time Temp Pulse Resp B/P Pulse Ox O2 Delivery O2 Flow Rate FiO2 07/07/16 12:00 69 07/07/16 12:00 98.7 78 21 133/50 95 07/07/16 08:00 68 07/07/16 08:00 79 07/07/16 08:00 98.3 07/07/16 08:00 70 11 107/44 90 07/07/16 06:00 78 07/07/16 05:38 76 26 121/49 96 07/07/16 04:28 96.8 70 6 116/51 93 07/07/16 04:00 70 07/07/16 03:28 72 10 101/37 94 07/07/16 03:00 70 5 93 07/07/16 02:28 70 13 98/36 95 07/07/16 02:00 72 9 92 07/07/16 02:00 70 07/07/16 01:28 72 11 100/47 93 07/07/16 01:00 72 16 96 07/07/16 00:59 70 7 106/40 97 07/07/16 00:45 70 7 102/49 93 07/07/16 00:30 70 17 92/44 95 07/07/16 00:15 70 12 91/54 96 07/07/16 00:00 98.4 70 6 95/34 93 07/07/16 00:00 69 07/06/16 23:30 70 11 96/35 93 07/06/16 23:00 70 9 99/49 96 07/06/16 22:30 72 10 98/39 99 07/06/16 22:00 70 6 96/37 95 07/06/16 22:00 72 07/06/16 21:55 70 16 86/38 99 07/06/16 21:53 70 20 73/50 94 07/06/16 21:30 72 8 90/34 93 07/06/16 21:00 70 14 104/37 97 07/06/16 20:30 72 7 112/49 94 07/06/16 20:00 72 07/06/16 20:00 98.5 72 11 114/49 98 07/06/16 19:30 72 16 119/50 97 07/06/16 19:00 72 18 118/55 84 07/06/16 18:00 70 10 112/49 96 07/06/16 18:00 70 07/06/16 17:00 70 12 113/48 96 07/06/16 16:30 70 -: 07/06/16 0635 07/07/16 0450 Physical Exam General Appearance: No Acute Distress, Comfortable Eyes Eye Exam: Pupils Equal Throat Throat Exam: Oral Mucosa [place] & Moist Neck Neck Exam: Neck Supple Pulmonary Resp Exam: Clear Bilaterally, Breath Sounds Equal, No Distress, Decreased Bases Cardiology CV Exam: Regular Gastrointestinal/Abdomen GI Exam: Soft, Non-Tender, Bowel Sounds Present Extremeties Extremities Exam: No Edema Neurologic Neuro Exam: Alert, Awake, Oriented Psychiatric Psych Exam: Appropriate Responses Assessment/Plan Assessment Summary: RUTHY/Acute Renal Failure Electrolyte Assessment: Hyperkalemia, Metabolic Acidosis Problem List: (1) DM (diabetes mellitus) (2) Dehydration (3) UTI (urinary tract infection) (4) Hyperkalemia (5) Lactic acid acidosis (6) Hypotension (7) Acute renal failure Plan Patient has been non oliguric. BP is better now. Creatinine and BUN are improving. K is normal now. Po4 was also elevated. Urine Na. is normal and Eosinophils negative. Most likely has ATN. Continue IVF and antibiotics. Blood cultures negative so far. Will check LISSY, and ANCA, to make sure not missing any other systemic disease. Urology consult noted. Problem Qualifiers (1) DM (diabetes mellitus): (2) UTI (urinary tract infection): Qualified Code: N30.00 - Acute cystitis without hematuria (3) Acute renal failure: Qualified Code: N17.1 - Acute renal failure with acute cortical necrosis Katerina Evans MD Jul 07, 2016 16:07
[2016-07-07] MEDS: MORPHINE SULFATE 4 MG/ML INJ IV PRN (18:19)
[2016-07-07] MEDS: AZTREONAM INJ 1,000 MG in SODIUM CHLORIDE 0.9% INJ 100 ML IV SCH (21:02)
[2016-07-07] MEDS: ATORVASTATIN 10 MG TAB PO SCH (21:10)
[2016-07-08] VITALS: BP 121/53; PULSE 73; RESP 16; TEMP 98.6; O2SAT 96
[2016-07-08] MEDS: CHLORHEXIDINE GLUCONATE 2 % 1 PACK (2 CLOTHS)(taper/protocol) TOPICAL SCH (03:13)
[2016-07-08] MEDS: ALPRAZolam 0.5 MG TAB PO PRN ×2 (04:31→17:58)
[2016-07-08] MEDS: SODIUM CHLOR 0.45% 1000 ML INJ 1,000 ML IV SCH ×2 (06:34→18:00)
[2016-07-08] MEDS: INSULIN ASPART SUPPLEMENTAL SCALE SQ SCH ×4 (06:35→21:00)
[2016-07-08 07:20] LABS: POTASSIUM 3.7 MEQ/L (3.5-5.1)
[2016-07-08 07:21] LABS: HEMATOCRIT 26.6 % (35.0-46.0); MEAN CELL VOLUME 83.7 FL (80.0-100.0); MEAN CORPUSCULAR HEMOGLOBIN 27.8 PG (27.0-34.0); MEAN CORPUSCULAR HGB CONC 33.1 % (32.0-36.0); PLATELET COUNT 119 TH/MM3 (150-450); RED BLOOD COUNT 3.18 MIL/MM3 (4.00-5.30); RED CELL DISTRIBUTION WIDTH 13.6 % (11.6-17.2); REVIEW FLAG FINAL; WHITE BLOOD COUNT 3.2 TH/MM3 (4.0-11.0)
[2016-07-08 08:00] VITALS: BP 130/75; PULSE 82; RESP 16; TEMP 97; O2SAT 97
[2016-07-08 08:00] LABS: BICARBONATE 29.2 MEQ/L (21.0-32.0); MAGNESIUM 1.3 MG/DL (1.5-2.5)
[2016-07-08] MEDS: DOCUSATE SODIUM 50 MG/SENNA 8.6 MG TAB PO SCH ×2 (09:00→21:22)
[2016-07-08] MEDS: POLYETHYLENE GLYCOL 17 GM PKG PO SCH ×2 (09:00→21:22)
[2016-07-08] MEDS: CALCIUM ACETATE 667 MG CAP PO SCH ×3 (09:00→18:00)
[2016-07-08] MEDS: LACTULOSE SYRUP 20 GM/30 ML CUP PO SCH ×2 (09:00→21:23)
[2016-07-08] MEDS: SODIUM CHLORIDE 0.9% FLUSH 10 ML FLUSH IV FLUSH SCH ×2 (09:00→21:00)
[2016-07-08] MEDS: BISACODYL 10 MG SUPP RECTAL SCH (09:00)
[2016-07-08] MEDS: MORPHINE SULFATE 60 MG CONTROLLED RELEASE TAB PO SCH ×2 (11:39→21:22)
[2016-07-08] MEDS: MAGNESIUM OXIDE 400 MG TAB PO SCH ×2 (11:39→21:22)
[2016-07-08] MEDS: DOCUSATE SODIUM 100 MG CAP PO SCH ×2 (11:39→21:22)
[2016-07-08] MEDS: PANTOPRAZOLE SOD 20 MG DELAYED RELEASE TAB PO SCH (11:39)
[2016-07-08] MEDS: HEPARIN SODIUM - SQ 10,000 UNITS/ML VIAL SQ SCH ×2 (11:41→21:22)
[2016-07-08] MEDS: ACETAMINOPHEN/HYDROcodone 325 MG/5 MG TAB PO PRN (11:42)
[2016-07-08 12:00] VITALS: BP 128/72; PULSE 82; RESP 16; TEMP 97; O2SAT 97
[2016-07-08 13:58] LABS: TRANSFERRIN IRON PROFILE 206 MG/DL (200-360)
[2016-07-08 14:23] LABS: FERRITIN 82 NG/ML (8-252)
--- NOTE | 2016-07-08 15:09 | HHI.PR ---
Subjective Remarks Patient states she is tired of being in the hospital and everything is aggravating her. She states she is not sleeping well complains that her Neurontin and Elavil were not restarted. She also stated that she got nauseated with a blue and white pill and is irritated the nursing staff is not as responsive to her on this for as compared to the ICU. She did have an episode of emesis earlier this morning after taking medications. Otherwise she' s tolerating diet well. She is ambulating. She wants to get out of the hospital as soon as possible. Objective Vitals Vital Signs Date Time Temp Pulse Resp B/P Pulse Ox O2 Delivery O2 Flow Rate FiO2 07/08/16 00:00 98.6 73 16 121/53 96 07/07/16 20:00 98.3 71 16 133/54 93 07/07/16 18:24 18 07/07/16 16:00 98.6 80 18 132/78 97 I/O 07/07/16 07/07/16 07/07/16 07/08/16 07/08/16 07/08/16 07:00 15:00 23:00 07:00 15:00 23:00 Intake Total 1374 ml 620 ml 1064 ml 831 ml Output Total 4000 ml 2400 ml 1000 ml 2800 ml Balance -2626 ml -1780 ml 64 ml -1969 ml Intake Oral 420 ml 620 ml 240 ml IV Total 954 ml 1064 ml 591 ml Output Urine Total 4000 ml 2400 ml 1000 ml 2800 ml # Bowel Movements 0 0 Result Diagram: 07/08/16 0615 07/08/16 06 Objective Remarks GENERAL: Well-nourished, well-developed patient. SKIN: Warm and dry. HEAD: Normocephalic. EYES: No scleral icterus. No injection or drainage. NECK: Supple, trachea midline. No JVD or lymphadenopathy. CARDIOVASCULAR: Regular rate and rhythm without murmurs, gallops, or rubs. RESPIRATORY: Breath sounds equal bilaterally. No accessory muscle use. GASTROINTESTINAL: Abdomen soft, non-tender, nondistended. EXTREMITIES: No cyanosis, or edema. NEUROLOGICAL: Awake, alert, and oriented x 3. Non-focal. A/P Problem List: (1) Acute renal failure ICD Code: N17.9 Status: Acute (2) Hypotension ICD Code: I95.9 Status: Acute (3) Lactic acid acidosis ICD Code: E87.2 Status: Resolved (4) Prolongation of QRS complex on electrocardiography ICD Code: R94.31 Status: Acute (5) Dehydration ICD Code: E86.0 Status: Resolved (6) Nausea & vomiting ICD Code: R11.2 Status: Acute (7) Hyperkalemia ICD Code: E87.5 Status: Acute (8) Hyperphosphatemia ICD Code: E83.39 Status: Acute (9) Urinary tract infection ICD Code: N39.0 Status: Acute (10) Diabetes ICD Code: E11.9 Status: Acute (11) Hypoglycemia ICD Code: E16.2 Status: Resolved Assessment and Plan -Septic shock due to acute pyelonephritis - shock resolves, lactic acidosis cleared. -Pyelonephritis/UTI. Continue aztreonam IV. Blood cultures are negative. Urine culture with Escherichia coli. Patient has allergy to amoxicillin. -QRS complex widening/intraventricular conduction delay - possibly due to the mild hyperkalemia on admission, will repeat EKG. Troponins were negative 2. Echocardiogram -Severe dehydration and hypotension secondary to nausea and vomiting which is now resolved. -Acute renal failure, prerenal in etiology - had progressed to ATN. Now improving with good urine output and by mouth intake. DC Andrews. Continue IV fluids. Appreciate nephrology input. -Hypertension - currently normotensive. -Hyperkalemia, resolved. -Chronic pain. Continue Oramorph. -Type 2 diabetes. Continue sliding scale insulin with Accu-Cheks. -GERD. Continue Protonix. -Anemia. Likely due to critical illness. No evidence of GI bleeding. Iron profile obtained and shows normal iron and ferritin. B-12 and folate within normal limits. Repeat CBC in the morning. -Hypomagnesemia. Start magnesium oxide. Recheck magnesium in the morning. -Chronic thrombocytopenia. Follow CBC. -DVT prophylaxis with SCDs. Problem Qualifiers (1) Acute renal failure: Qualified Code: N17.1 - Acute renal failure with acute cortical necrosis (2) Nausea & vomiting: Qualified Code: R11.2 - Nausea and vomiting, intractability of vomiting not specified, unspecified vomiting type (3) Urinary tract infection: Qualified Code: N39.0 - Urinary tract infection without hematuria, site unspecified (4) Diabetes: Qualified Code: E11.8 - Type 2 diabetes mellitus with complication, without long-term current use of insulin Aarti Tamayo MD Jul 08, 2016 15:09
[2016-07-08 16:00] VITALS: BP 130/75; PULSE 83; RESP 16; TEMP 97.6; O2SAT 97
[2016-07-08] MEDS: GABAPENTIN 300 MG CAP PO SCH ×2 (16:45→21:22)
[2016-07-08] MEDS: MORPHINE SULFATE 4 MG/ML INJ IV PRN (17:58)
[2016-07-08 20:00] VITALS: BP 149/68; PULSE 65; RESP 20; TEMP 98.1; O2SAT 97
[2016-07-08] MEDS: AZTREONAM INJ 1,000 MG in SODIUM CHLORIDE 0.9% INJ 100 ML IV SCH (21:21)
[2016-07-08] MEDS: ATORVASTATIN 10 MG TAB PO SCH (21:22)
--- NOTE | 2016-07-08 22:04 | HHI.NPPN ---
Subjective General Problems: Anemia, Mebatolic Acidosis Renal Failure: Acute History of Present Illness 56-year-old female with past medical history of ureteral obstruction with history of stent placement following with urology, history of anxiety and depression, hyperlipidemia, diabetes mellitus, came to the hospital because of nausea and vomiting, generalized weakness and urinary retention. The patient has elevated BUN and creatinine. The patient had a previous creatinine of 0.9. This was in March of last year and now he came in with a BUN of 72, creatinine of 7.8. Additional Remarks Patient is alert, feeling better, no dizziness, no SOB. Objective Data Data 07/07/16 07/08/16 19:00 07:00 Intake Total 1292 ml 1223 ml Output Total 3400 ml 2800 ml Balance -2108 ml -1577 ml Intake Oral 620 ml 240 ml IV Total 672 ml 983 ml Output Urine Total 3400 ml 2800 ml # Bowel Movements 0 Vital Signs Date Time Temp Pulse Resp B/P Pulse Ox O2 Delivery O2 Flow Rate FiO2 07/08/16 20:00 98.1 65 20 149/68 97 07/08/16 16:00 97.6 83 16 130/75 97 07/08/16 12:00 97.0 82 16 128/72 97 07/08/16 08:00 97.0 82 16 130/75 97 07/08/16 00:00 98.6 73 16 121/53 96 -: 07/08/16 0615 07/08/16 0615 Physical Exam General Appearance: No Acute Distress, Comfortable Eyes Eye Exam: Pupils Equal Throat Throat Exam: Oral Mucosa [place] & Moist Neck Neck Exam: Neck Supple Pulmonary Resp Exam: Clear Bilaterally, Breath Sounds Equal, No Distress, Decreased Bases Cardiology CV Exam: Regular Gastrointestinal/Abdomen GI Exam: Soft, Non-Tender, Bowel Sounds Present Extremeties Extremities Exam: No Edema Neurologic Neuro Exam: Alert, Awake, Oriented Psychiatric Psych Exam: Appropriate Responses Assessment/Plan Assessment Summary: RUTHY/Acute Renal Failure Electrolyte Assessment: Hyperkalemia, Metabolic Acidosis Problem List: (1) DM (diabetes mellitus) (2) Dehydration (3) UTI (urinary tract infection) (4) Hyperkalemia (5) Lactic acid acidosis (6) Hypotension (7) Acute renal failure Plan Patient has been non oliguric. BP is better now. Creatinine and BUN are improving. K is normal now. Po4 was also elevated. Urine Na. is normal and Eosinophils negative. Most likely has ATN. Continue IVF and antibiotics. Blood cultures negative so far. Will check LISSY, and ANCA, to make sure not missing any other systemic disease. Urology consult noted. Problem Qualifiers (1) DM (diabetes mellitus): (2) UTI (urinary tract infection): Qualified Code: N30.00 - Acute cystitis without hematuria (3) Acute renal failure: Qualified Code: N17.1 - Acute renal failure with acute cortical necrosis Katerina Evans MD Jul 08, 2016 22:03
[2016-07-09] VITALS: BP 143/62; PULSE 72; RESP 18; TEMP 96.9; O2SAT 96
[2016-07-09] MEDS: MUPIROCIN 2% OINT 1 APPLIC/GM SYR EACH NARE SCH ×2 (00:36→08:59)
[2016-07-09] MEDS: CHLORHEXIDINE GLUCONATE 2 % 1 PACK (2 CLOTHS)(taper/protocol) TOPICAL SCH ×2 (02:09→02:17)
[2016-07-09] MEDS: MORPHINE SULFATE 4 MG/ML INJ IV PRN ×2 (02:11→06:26)
[2016-07-09] MEDS: ALPRAZolam 0.5 MG TAB PO PRN ×2 (02:14→09:46)
[2016-07-09] MEDS: INSULIN ASPART SUPPLEMENTAL SCALE SQ SCH ×2 (05:31→11:53)
[2016-07-09] MEDS: SODIUM CHLOR 0.45% 1000 ML INJ 1,000 ML IV SCH (05:37)
[2016-07-09 06:52] LABS: AUTOMATED NEUTROPHIL # 1.5 TH/MM3 (1.8-7.7); BASOPHIL % 0.5 % (0.0-2.0); EOSINOPHIL # 0.1 TH/MM3 (0-0.4); EOSINOPHIL % 2.7 % (0.0-4.0); HEMATOCRIT 28.6 % (35.0-46.0); HEMO FLAGS DIFF FINAL; LYMPH % 46.8 % (9.0-44.0); LYMPHOCYTE # 1.7 TH/MM3 (1.0-4.8); MEAN CELL VOLUME 84.9 FL (80.0-100.0); MEAN CORPUSCULAR HEMOGLOBIN 27.5 PG (27.0-34.0); MEAN CORPUSCULAR HGB CONC 32.4 % (32.0-36.0); MONO % 9.1 % (0.0-8.0); NEUT % 40.9 % (16.0-70.0); PLATELET COUNT 145 TH/MM3 (150-450); RED BLOOD COUNT 3.37 MIL/MM3 (4.00-5.30); RED CELL DISTRIBUTION WIDTH 13.4 % (11.6-17.2); WHITE BLOOD COUNT 3.6 TH/MM3 (4.0-11.0)
[2016-07-09 06:55] LABS: POTASSIUM 3.6 MEQ/L (3.5-5.1)
[2016-07-09 07:09] LABS: BICARBONATE 31.4 MEQ/L (21.0-32.0); MAGNESIUM 1.4 MG/DL (1.5-2.5)
[2016-07-09] MEDS ORDERED: MAGNESIUM SULFATE 1 GM PREMIX 100 ML IV ONE (08:45)
[2016-07-09] MEDS: POLYETHYLENE GLYCOL 17 GM PKG PO SCH (08:49)
[2016-07-09] MEDS: MAGNESIUM OXIDE 400 MG TAB PO SCH (08:50)
[2016-07-09] MEDS: DOCUSATE SODIUM 50 MG/SENNA 8.6 MG TAB PO SCH (08:51)
[2016-07-09] MEDS: GABAPENTIN 300 MG CAP PO SCH (08:51)
[2016-07-09] MEDS: PANTOPRAZOLE SOD 20 MG DELAYED RELEASE TAB PO SCH (08:52)
[2016-07-09] MEDS: DOCUSATE SODIUM 100 MG CAP PO SCH (08:52)
[2016-07-09] MEDS: MORPHINE SULFATE 60 MG CONTROLLED RELEASE TAB PO SCH (08:53)
[2016-07-09] MEDS: LACTULOSE SYRUP 20 GM/30 ML CUP PO SCH (08:54)
[2016-07-09] MEDS: CALCIUM ACETATE 667 MG CAP PO SCH (08:54)
[2016-07-09] MEDS: BISACODYL 10 MG SUPP RECTAL SCH (08:55)
[2016-07-09] MEDS: HEPARIN SODIUM - SQ 10,000 UNITS/ML VIAL SQ SCH (08:56)
[2016-07-09] MEDS ORDERED: DOXYCYCLINE HYCLATE 100 MG TAB PO SCH (09:00)
[2016-07-09] MEDS: SODIUM CHLORIDE 0.9% FLUSH 10 ML FLUSH IV FLUSH SCH (09:00)
[2016-07-09] MEDS ORDERED: MAGN400T3 PO (09:03)
[2016-07-09] MEDS ORDERED: DOXY100C PO (09:03)
--- NOTE | 2016-07-09 09:16 | HHI.FF ---
Face to Face Verification Diagnosis: (1) DM (diabetes mellitus) (2) Acute renal failure (3) Urinary tract infection (4) Chronic pain syndrome Home Health Nursing Order: Medical education Diabetic education Nursing assessment with vital signs I have seen patient Hannah Abad on 07/09/16. My clinical findings support the need for the requested home health care services because: Need for psychosocial assistance I certify that my clinical findings support that this patient is homebound because: Need for psychosocial assistance Aarti Tamayo MD Jul 09, 2016 09:16
[2016-07-09 09:17] VITALS: BP 147/66; PULSE 88; RESP 17; TEMP 97.9; O2SAT 98
--- NOTE | 2016-07-09 09:19 | HHI.DS ---
Discharge Summary Admission Date Jul 05, 2016 at 18:51 Discharge Date: Jul 09, 2016 Admitting Diagnosis Acute renal failure (1) Acute renal failure ICD Code: N17.9 Diagnosis: Principal (2) Hypotension ICD Code: I95.9 Diagnosis: Principal (3) Lactic acid acidosis ICD Code: E87.2 Diagnosis: Principal (4) Prolongation of QRS complex on electrocardiography ICD Code: R94.31 Diagnosis: Principal (5) Dehydration ICD Code: E86.0 Diagnosis: Principal (6) Nausea & vomiting ICD Code: R11.2 Diagnosis: Principal (7) Hyperkalemia ICD Code: E87.5 Diagnosis: Principal (8) Hyperphosphatemia ICD Code: E83.39 Diagnosis: Principal (9) Urinary tract infection ICD Code: N39.0 Diagnosis: Principal (10) Diabetes ICD Code: E11.9 Diagnosis: Secondary (11) Hypoglycemia ICD Code: E16.2 Procedures None Brief History - From Admission 56-year-old female with known history of hypertension, diabetes, chronic pain who presented to the hospital because of difficulty in urinating. Patient states that for approximately 4 days prior to coming to the hospital she had been experiencing intractable nausea vomiting where she cannot tolerate anything by mouth. She did go see her primary medical doctor Dr. Rollins and was given Phenergan. The patient states that she was still having nausea vomiting. She was about to run out of her chronic pain medication so she went to her pain management doctor's office on the same day and got her prescriptions for her chronic narcotic pain medications. The patient did not improve over the next few days. And she states that she started having decreased urinary output. States abdominal day that she came to the hospital she tried to go to the bathroom and she had to force 2 drops of urine output so because of that reason she came to the hospital for evaluation. Patient had workup done emergency department found to have acute renal failure. Creatinine 7.80. Patient does have a rather extensive kidney, bladder problems with kidney stones. Patient did just undergo surgical intervention by Dr. Owen on 03/18/16. At that time she did undergo cystoscopy urethroscopic, right retrograde pyelogram, right ureter stent exchange, robotic assisted laparoscopic right dismembered pyeloplasty. Patient had been doing well and is followed up with Dr. Owen on a regular basis. Patient did have urinalysis performed which did indicate likely urinary tract infection. Because of acute renal failure, hyperkalemia, urinary tract infection and is recommended the patient be admitted to the medical team for further evaluation. Further testing was performed to include lactic acid which was significantly elevated at 5.6. Patient was apparently hypotensive throughout the evening. Records indicate patient had map of 61-66 throughout the evening. Upon evaluating patient immediately this morning she had a map of 55. At that time urine output was evaluated and Andrews had 350 cc of urine in the bag. Night nurse indicates that she has not emptied the bag at this time so this would have to be the amount of urine since placement of the Andrews which was 1715, 07/05/16. If that is correct the patient has had 25 cc an hour of urinary output. Telemetry was reviewed and it did indicate that patient had QRS complex was 180 ms. The patient upon being seen by the hospitalist team immediately transferred the patient to the ICU, started IV fluid boluses. Started D50, calcium gluconate and consulted critical care for management. CBC/BMP: 07/09/16 0550 07/09/16 0550 Significant Findings Laboratory Tests Test 07/06/16 07/06/16 07/06/16 07/06/16 09:40 10:30 15:30 17:06 Urine Protein 30 mg/dL (NEG-TRACE) Urine Occult Blood SMALL (NEG) Urine Leukocyte Esterase MOD (NEG) Urine WBC 20-24 /hpf (0-5) Urine Bacteria FEW /hpf (NONE) Sodium Level 133 MEQ/L 132 MEQ/L (136-145) (136-145) Potassium Level 5.2 MEQ/L 5.5 MEQ/L (3.5-5.1) (3.5-5.1) Chloride Level 96 MEQ/L (98-107) Carbon Dioxide Level 18.7 MEQ/L 17.2 MEQ/L (21.0-32.0) (21.0-32.0) Anion Gap 18 MEQ/L (5-15) 17 MEQ/L (5-15) Blood Urea Nitrogen 79 MG/DL (7-18) 75 MG/DL (7-18) Creatinine 7.00 MG/DL 6.60 MG/DL (0.50-1.00) (0.50-1.00) Estimat Glomerular Filtration 6 ML/MIN (>89) 6 ML/MIN (>89) Rate Random Glucose 112 MG/DL 135 MG/DL (74-106) (74-106) Lactic Acid Level 2.5 mmol/L 2.2 mmol/L (0.4-2.0) (0.4-2.0) Calcium Level 8.0 MG/DL 7.7 MG/DL (8.5-10.1) (8.5-10.1) Troponin I LESS THAN 0.02 NG/ML (0.02-0.05) Test 07/06/16 07/07/16 07/08/16 07/09/16 21:47 04:50 06:15 05:50 Sodium Level 133 MEQ/L (136-145) Blood Urea Nitrogen 72 MG/DL (7-18) 64 MG/DL (7-18) 34 MG/DL (7-18) Creatinine 5.80 MG/DL 4.80 MG/DL 1.90 MG/DL 1.20 MG/DL (0.50-1.00) (0.50-1.00) (0.50-1.00) (0.50-1.00) Estimat Glomerular Filtration 8 ML/MIN (>89) 9 ML/MIN (>89) 27 ML/MIN (>89) 46 ML/MIN (>89) Rate Random Glucose 116 MG/DL 160 MG/DL 164 MG/DL 133 MG/DL (74-106) (74-106) (74-106) (74-106) Calcium Level 7.8 MG/DL 8.1 MG/DL 8.4 MG/DL (8.5-10.1) (8.5-10.1) (8.5-10.1) Troponin I LESS THAN 0.02 NG/ML (0.02-0.05) White Blood Count 3.2 TH/MM3 3.6 TH/MM3 (4.0-11.0) (4.0-11.0) Red Blood Count 3.18 MIL/MM3 3.37 MIL/MM3 (4.00-5.30) (4.00-5.30) Hemoglobin 8.8 GM/DL 9.3 GM/DL (11.6-15.3) (11.6-15.3) Hematocrit 26.6 % 28.6 % (35.0-46.0) (35.0-46.0) Platelet Count 119 TH/MM3 145 TH/MM3 (150-450) (150-450) Phosphorus Level 2.1 MG/DL 1.8 MG/DL (2.5-4.9) (2.5-4.9) Magnesium Level 1.3 MG/DL 1.4 MG/DL (1.5-2.5) (1.5-2.5) Percent Iron Saturation 17.3 % (20-50) Folate GREATER THAN 20.0 NG/ML (3.1-17.5) Lymphocytes (%) (Auto) 46.8 % (9.0-44.0) Monocytes (%) (Auto) 9.1 % (0.0-8.0) Neutrophils # (Auto) 1.5 TH/MM3 (1.8-7.7) Imaging Last Impressions Renal Ultrasound 07/06/16 0000 Signed Impressions: Service Date/Time: Wednesday, July 06, 2016 12:09 - CONCLUSION: Renal size and cortex are reasonably well-preserved. Mild dilatation of the right collecting system. José Miguel Feldman MD FACR Abdomen/Pelvis CT 07/05/16 1633 Signed Impressions: Service Date/Time: Tuesday, July 05, 2016 17:23 - CONCLUSION: No acute findings. Mild prominence of the renal pelvis on the left side is less prominent than on prior CT and there is no definite evidence of hydronephrosis. No calcified stones. No dilated loops of small or large bowel. Adiel Harmon MD PE at Discharge GENERAL: Well-nourished, well-developed patient. SKIN: Warm and dry. HEAD: Normocephalic. EYES: No scleral icterus. No injection or drainage. NECK: Supple, trachea midline. No JVD or lymphadenopathy. CARDIOVASCULAR: Regular rate and rhythm without murmurs, gallops, or rubs. RESPIRATORY: Breath sounds equal bilaterally. No accessory muscle use. GASTROINTESTINAL: Abdomen soft, non-tender, nondistended. EXTREMITIES: No cyanosis, or edema. NEUROLOGICAL: Awake, alert, and oriented x 3. Non-focal. Hospital Course The patient was treated for septic shock due to acute pyelonephritis. Blood cultures were negative. Lactic acidosis cleared. She was treated with aztreonam IV. Urine culture grew Escherichia coli. The patient also had acute renal failure and nephrology was consulted. Her renal function gradually improved and creatinine is down to 1.2 today. The patient also has a left bundle branch block that is a new finding for her. Troponins were negative. Echocardiogram revealed preserved left ventricular ejection fraction no significant valvular abnormalities. The patient is doing well, ambulating and tolerating diet. She would like to go home today. I did discuss with her primary care physician Dr. aguilera who will have the patient follow-up with her in her clinic this week. The patient needs to follow-up with her cardiac monitor Dr. Marie for evaluation of the new left bundle branch block. I also recommended that she avoid amitriptyline for the time being. Also recommended that she not go back on metformin due to lactic acidosis on admission. She will continue on glipizide instead. Pt Condition on Discharge: Stable Discharge Disposition: Disch w/ Home Health Serv Discharge Time: > 30 minutes Discharge Instructions DIET: Follow Instructions for: Diabetic Diet Activities you can perform: Regular-No Restrictions Follow up Referrals: Cardiology - 1 Month with Nevin Marie MD PCP Follow-up - 1 Week with Shayna Aguilera MD New Medications: Doxycycline Hyclate (Doxycycline Hyclate) 100 Mg Cap 100 MG PO BID uti #20 CAP Magnesium Oxide (Magnesium Oxide) 241.3 Mg Tab 400 MG PO Q12HR Electrolyte Replacement #10 TAB Continued Medications: Alprazolam (Xanax) 1 Mg Tab 1 MG PO Q6H May fill 05/02 PRN ANXIETY #120 Ref 0 TAB Atenolol (Atenolol) 50 Mg Tab 50 MG PO BID Blood Pressure Management #180 Ref 6 TAB Atorvastatin (Atorvastatin) 10 Mg Tab 10 MG PO HS Cholesterol Management #90 Ref 6 TAB Carisoprodol (Soma) 250 Mg Tab 250 MG PO TID PRN PAIN Ref 0 TAB Cholecalciferol (D3 2000) 2,000 Unit Tab 1 TAB PO DAILY #90 Ref 3 TAB Gabapentin (Gabapentin) 800 Mg Tab 800 MG PO QID #360 Ref 12 TAB Glipizide (Glipizide) 10 Mg Tab 10 MG PO BIDAC Take 30 minutes before a meal Blood Sugar Management #60 Ref 12 TAB Lidocaine (Lidocare Back/Shoulder) 4 % Pad 1 PAD TOPICAL DAILY PRN PAIN SCALE 1 TO 10 Morphine ER (Ms Contin) 60 Mg Tab 60 MG PO Q8H Pain Management #93 Ref 0 TAB Morphine IR (Morphine IR) 15 Mg Tab 15 MG PO Q4H PRN PAIN #30 Ref 0 TAB Nitroglycerin SL (Nitrostat SL) 0.4 Mg Subl 0.4 MG SL DIRECTED ONE TABLET UNDER THE TONGUE NEEDED FOR CHEST PAIN, MAY REPEAT EVERY FIVE MINUTES FOR A TOTAL OF 3 DOSES OR CALL 911 IF NO RELIEF PRN CHEST PAIN #25 Ref 0 TAB.SL Omeprazole (Omeprazole) 20 Mg Tab 20 MG PO DAILY #90 Ref 6 TAB Ondansetron (Zofran) 4 Mg Tab 4 MG PO Q12HR PRN NAUSEA OR VOMITING #60 Ref 0 TAB Potassium Chloride ER (Potassium Chloride CR) 10 Meq Tab 10 MEQ PO DAILY #93 Ref 6 TAB Discontinued Medications: Amitriptyline (Amitriptyline) 150 Mg Tab 150 MG PO HS Control Depression #90 Ref 6 TAB Amitriptyline HCl (Elavil) 25 Mg Tab 150 TAB PO HS #30 Ref 6 TAB Furosemide (Lasix) 40 Mg Tab 40 MG PO DAILY #93 Ref 0 TAB Lactulose Liq (Lactulose Liq) 10 Gm/15 Ml Soln 30 ML PO TID #1 Ref 0 BOTTLE Metformin (Metformin) 1,000 Mg Tab 2500 MG PO BID With a meal Blood Sugar Management #30 Ref 0 TAB Metoclopramide (Reglan) 10 Mg Tab 10 MG PO TIDAC PRN ACID REFLUX Ref 0 TAB Promethazine (Phenergan) 50 Mg Tab 50 MG PO Q6H PRN NAUSEA OR VOMITING #30 Ref 0 TAB Aarti Tamayo MD Jul 09, 2016 09:19
[2016-07-09 09:58] VITALS: RESP 6
--- NOTE | 2016-07-09 10:06 | EKG ---
Date Performed: 07/08/2016 Time Performed: 16:35:02 PTAGE: 56 years EKG: Sinus rhythm ventricular paced rhythm Abnormal ECG PREVIOUS TRACING : 07/06/2016 08.42 DOCTOR: Eldon Marie Interpretating Date/Time 07/09/2016 10:03:53
--- NOTE | 2016-07-09 12:40 | HHI.NPPN ---
Subjective General Problems: Anemia, Mebatolic Acidosis Renal Failure: Acute History of Present Illness 56-year-old female with past medical history of ureteral obstruction with history of stent placement following with urology, history of anxiety and depression, hyperlipidemia, diabetes mellitus, came to the hospital because of nausea and vomiting, generalized weakness and urinary retention. The patient has elevated BUN and creatinine. The patient had a previous creatinine of 0.9. This was in March of last year and now he came in with a BUN of 72, creatinine of 7.8. Additional Remarks Patient is alert,no complain, no abd. pain. Objective Data Data 07/08/16 07/09/16 19:00 07:00 Intake Total 1547 ml 2376 ml Balance 1547 ml 2376 ml Intake Oral 600 ml 1560 ml IV Total 947 ml 816 ml # Voids 8 # Bowel Movements 1 Vital Signs Date Time Temp Pulse Resp B/P Pulse Ox O2 Delivery O2 Flow Rate FiO2 07/09/16 09:58 6 07/09/16 09:17 97.9 88 17 147/66 98 07/09/16 00:00 96.9 72 18 143/62 96 07/08/16 20:00 98.1 65 20 149/68 97 07/08/16 16:00 97.6 83 16 130/75 97 -: 07/09/16 0550 07/09/16 0550 Physical Exam General Appearance: No Acute Distress, Comfortable Eyes Eye Exam: Pupils Equal Throat Throat Exam: Oral Mucosa [place] & Moist Neck Neck Exam: Neck Supple Pulmonary Resp Exam: Clear Bilaterally, Breath Sounds Equal, No Distress, Decreased Bases Cardiology CV Exam: Regular Gastrointestinal/Abdomen GI Exam: Soft, Non-Tender, Bowel Sounds Present Extremeties Extremities Exam: No Edema Neurologic Neuro Exam: Alert, Awake, Oriented Psychiatric Psych Exam: Appropriate Responses Assessment/Plan Assessment Summary: RUTHY/Acute Renal Failure Electrolyte Assessment: Hyperkalemia, Metabolic Acidosis Problem List: (1) DM (diabetes mellitus) (2) Dehydration (3) UTI (urinary tract infection) (4) Hyperkalemia (5) Lactic acid acidosis (6) Hypotension (7) Acute renal failure Plan Patient has been non oliguric. BP is better now. Creatinine and BUN are improving. K is normal now. Po4 was also elevated. Urine Na. is normal and Eosinophils negative. Most likely has ATN. Blood cultures negative so far. LISSY, and ANCA pending. Now for D/C , to follow with her PCP and refer to Nephrology if needed. Problem Qualifiers (1) DM (diabetes mellitus): (2) Acute renal failure: Qualified Code: N17.1 - Acute renal failure with acute cortical necrosis Katerina Evans MD Jul 09, 2016 12:40 Katerina Evans MD Jul 09, 2016 12:40
[2016-07-09 13:34] LABS: ANA SCREEN POS (NEG)
[2016-07-10 23:52] LABS: MYELOPEROXIDASE LESS THAN 1.0 AI (<1.0); PROTEINASE-3 LESS THAN 1.0 AI (<1.0)
[2016-07-11 13:38] LABS: ANA TITER QUANT 1:40 (NEG)
[2016-07-28] MEDS ORDERED: XANA1TAB2 PO (14:15)
[2016-08-26] MEDS ORDERED: AMIT25TA9 PO (09:30)
[2016-08-26] MEDS ORDERED: XANA1TAB2 PO (09:37)
[2016-09-03] MEDS ORDERED: LISI2.5T3 PO (10:16)
[2016-09-04] MEDS ORDERED: TRAM50TA PO (10:20)
[2016-09-12] MEDS ORDERED: AMIT25TA9 PO (13:48)
[2016-09-23] MEDS ORDERED: XANA1TAB2 PO (10:00)
[2016-09-23] MEDS ORDERED: TRIA40P I-ARTICULR (11:32)
[2016-10-01] MEDS ORDERED: BLOO1EAC16 SQ (09:53)
[2016-10-01] MEDS ORDERED: GLUCTES12 SQ (09:53)
== END 2016-07-09 13:36 | disposition home or self-care (01) | DRG 871 ==
LOC: PHED 16:07 → PHEDA 18:51 → PH3B 22:20 → PHICU 07-06 08:16 → PH3B 07-07 15:36
PROVIDERS: ADMIT Family Medicine; ATTEND Family Medicine
DX: A41.9 Sepsis, unspecified organism (principal); N17.1 Acute kidney failure with acute cortical necrosis; N17.0 Acute kidney failure with tubular necrosis; R65.21 Severe sepsis with septic shock; D69.6 Thrombocytopenia, unspecified; E11.649 Type 2 diabetes mellitus with hypoglycemia without coma; E87.2 Acidosis; N30.00 Acute cystitis without hematuria; E83.42 Hypomagnesemia; E83.39 Other disorders of phosphorus metabolism; D64.9 Anemia, unspecified; E78.5 Hyperlipidemia, unspecified; E86.0 Dehydration; E87.5 Hyperkalemia; G89.29 Other chronic pain; I10 Essential (primary) hypertension; I44.7 Left bundle-branch block, unspecified; K21.9 Gastro-esophageal reflux disease without esophagitis; N20.0 Calculus of kidney; Z79.4 Long term (current) use of insulin; F43.10 Post-traumatic stress disorder, unspecified
CPT/HCPCS: 51702; 74176; 76775; 76937; 80048; 80053; 81001; 82550; 82570; 82607; 82728; 82746; 82948; 83540; 83550; 83605; 83690; 83735; 84100; 84300; 84484; 85025; 85027; 85610; 85730; 86021; 86038; 86039; 87040; 87077; 87086; 87186; 87205; 87641; 93005; 93306; 94150; 96361; 96365; 96375; 96376; J0610; J1644; J1815; J1956; J2270; J2405; J2765; J3475; J7030

== ENCOUNTER 2017-05-05 10:01 | Day surgery (SDC) | payer OTHER ==
[~2017-05-05] VITALS: Ht 177.8 cm; Wt 86.0 kg
[~2017-05-05 10:01] MED LIST changes: -AMIT150T PO; -AMIT1TAB79 PO; +AMIT50TA3 PO; -ASPI325T33 PO; +BLOO1EAC16 SQ; +BLOOKIT15 SQ; -CHOL1TAB29 PO; +D200CAP PO; -FURO1TAB60 PO; -GLUC1000 PO; +GLUCTES12 SQ; -LISI-588 PO; -METF500T PO; +MORP1TAB26 PO; -MS C60TA2 PO; -OMEP20TA PO; +OMEP20TA93 PO; +POTA10CA PO; -POTA10TA8 PO; -PROM50TA PO; -REGL10TA5 PO; +SOMA250T PO; -SOMA350T PO
[2017-05-05] MEDS ORDERED: IOHEXOL 350 MG/ML 50 ML BTL (for Cath Lab) OTHER ONE (10:02)
[2017-05-05] MEDS ORDERED: ASPI-516 CHEW (10:54)
[2017-05-05] MEDS ORDERED: ZANT150T2 PO (10:54)
[2017-05-05] MEDS ORDERED: VITA1000 PO (10:54)
[2017-05-05] MEDS ORDERED: MIRA3350 PO (10:54)
[2017-05-05] MEDS ORDERED: Benadryl PO (10:54)
[2017-05-05] MEDS ORDERED: COLA100C5 (10:54)
[2017-05-05] MEDS ORDERED: PRED20 PO (10:54)
[2017-05-05] MEDS ORDERED: ISOR40CR (10:54)
[2017-05-05 10:57] VITALS: BP 159/72; PULSE 59; RESP 16; TEMP 97.4; O2SAT 99
[2017-05-05] MEDS ORDERED: SODIUM CHLOR 0.9% 1000 ML INJ 1,000 ML IV SCH (11:15)
[2017-05-05] MEDS ORDERED: ASPIRIN 325 MG TAB PO SCH (11:15)
[2017-05-05 11:19] LABS: AUTOMATED NEUTROPHIL # 3.3 TH/MM3 (1.8-7.7); BASOPHIL % 0.2 % (0.0-2.0); EOSINOPHIL % 0.1 % (0.0-4.0); HEMATOCRIT 37.7 % (35.0-46.0); HEMOGLOBIN 12.6 GM/DL (11.6-15.3); LYMPH % 17.8 % (9.0-44.0); LYMPHOCYTE # 0.7 TH/MM3 (1.0-4.8); MEAN CELL VOLUME 77.3 FL (80.0-100.0); MEAN CORPUSCULAR HEMOGLOBIN 25.8 PG (27.0-34.0); MEAN CORPUSCULAR HGB CONC 33.4 % (32.0-36.0); MONO % 1.9 % (0.0-8.0); MONOCYTE # 0.1 TH/MM3 (0-0.9); PLATELET COUNT 112 TH/MM3 (150-450); RED BLOOD COUNT 4.88 MIL/MM3 (4.00-5.30); RED CELL DISTRIBUTION WIDTH 15.5 % (11.6-17.2); WHITE BLOOD COUNT 4.1 TH/MM3 (4.0-11.0)
[2017-05-05 11:30] LABS: INTERNATIONAL NORMALIZED RATIO 1.1 RATIO; PROTHROMBIN TIME - PATIENT 11.5 SEC (9.8-11.6)
[2017-05-05 11:34] LABS: BICARBONATE 31.8 MEQ/L (21.0-32.0); CALCIUM 9.3 MG/DL (8.5-10.1); CREATININE 0.97 MG/DL (0.50-1.00)
[2017-05-05] MEDS ORDERED: HEPARIN-NS/PF INJ 500 ML ONE (11:52)
[2017-05-05] MEDS ORDERED: MIDAZOLAM HCL 2 MG/2 ML VIAL ONE ×2 (12:22→12:52)
[2017-05-05] MEDS ORDERED: methylPREDNISolone SOD SUCC 125 MG/2 ML VIAL ONE (12:57)
[2017-05-05] MEDS ORDERED: HYDROCORTISONE SOD SUCCINATE 100 MG VIAL ONE (12:59)
[2017-05-05] MEDS ORDERED: ENALAPRILAT 1.25 MG/ML VIAL ONE (13:04)
--- NOTE | 2017-05-05 13:21 | CATHPROC ---
RABT HIS Report Study Information Study Number Admission Scheduled Start Study Start [id number] May 05 2017 10:01AM 05/05/2017 May 05 2017 12:05PM [facility] Cardiac Catheterization Admit Source Facility Department Other [facility] - Roaster Operator Physician and Clinical Staff Initial MD Marie, Nevin Personnel Research Psychologist Anthony HAYS, Luis Antonio Recorder Courtney Birch ,RT(R) Recorder Mark Bella,RT(R) Scrub Krystal Pablo,RT(R) Procedures Performed Procedure Location (Site) Vessel Name Angiogram LV LV Ventricle Coronary Angiograms LCA Left Coronary Coronary Angiograms RCA Right Coronary L Heart Cath Equipment Time Financial Auditor Description Size Mfg Part Number Used/Scraped TRANSDUCER, TRMarketing MunchAVE [id number] 12:24 WAYNE [employer]ch * Used W/STOCKCOCK *[id number] INTRODUCER SET, 12:24 [employer] FR 5 [id number] *[id number] Used MICROPUNCTURE, STIFFENED 538-476 *[id number] 538-420 *[id number] [id number] *[id number] 12:24 [employer]RIES PACK, CCL CUSTOM * Used *[id number] 12:24 [employer] PACER PEN, SKIN DUAL W/ RULER * Used *[id number] 12:24 [employer] WIRE, 3MMJ .035 180CM 180CM Used *[id number] PROBE COVER, STERILE [id number] 12:24 [employer] MEDICAL * Used ULTRASOUND W/ GEL *[id number] 12:24 NAMIC MANIFOLD, 4 PORT * Used *[id number] 12:24 [employer] OMNIPAQUE, 350 MG, 150ML 150ML [id number] Used [id number] 12:24 [employer] BL[employer],WARM AIR CCL * Used *[id number] 12:24 [employer] MEDICAL SHEATH, FR4 TERUMO (10CM) FR 4 Used *[id number] History: Current Medications Medication Dosage/Unit Route Frequency Last Date/Time Taken Statins (any) ASA NTG SL History: Allergies Allergy Reaction *MDRO Multi-Drug Resistant Organism NSAIDS (Non-Steroidal Anti- Kidney failure Inflamma caffeine SVT codeine IRREGULAR HEARTRATE epinephrine INCREASED SVT'S clavulanic acid [place] bad, chest felt funny, nauseated adhesive hives short period of time only is fine amoxicillin [place] bad, chest felt funny, nauseated cyclobenzaprine Arrhythmias tizanidine Hallucinations. shellfish derived Hives History: Risk Factors Family History of Hypertension Dyslipidemia Previous ND Previous Heart Failure Premature CAD Yes No Yes No No Prior Valve Prior PCI Prior CABG Surgery No No No Cerebrovascular Peripheral Artery Chronic Lung On Dialysis Diabetes Diabetes Therapy Disease Disease Disease No No No No Yes Insulin History: Symptoms/Diagnosis Selection Items Chest pain History: Stress Tests Stress or Imaging Studies Performed Yes Standard Exercise Stress Test No Stress Echo No Stress Test SPECT No Stress Test CMR No Cardiac CTA Coronary Calcium Score No No History: Other Current Smoker No Labs Hgb (g/dl) Hct (%) WBC (l/cumm) Platelets (thousands) 11.60-17.00 35.00-51.00 4.00-11.00 150.00-450.00 12.6 37.7 4.1 112 Glucose (mg/dl) BUN (mg/dl) Creatinine (mg/dl) BUN:Creatinine (1:x) 74.00-106.00 7.00-18.00 0.50-1.30 10.00-20.00 177 18 0.9 20 Na (meq/l) K (meq/l) 136.00-145.00 3.50-5.10 139 4.3 INR (PTT:PT) 0.90-1.10 1.1 CPK-MB (ng/ML) 0.50-3.60 Not Drawn Medication Medication Total Dose (Bolus/Oral) Medication Total Dosage/Unit 1% XYLOCAINE 20 mL FENTANYL 50 mcg SOLU-CORTEF 100 mg VASOTEC 2.5 mg VERSED 3 mg Medications (Bolus/Oral) Medication Time Given Dosage/Unit Administered By Reason FENTANYL 05/05/2017 12:48:00 PM 50 mcg Luis Antonio Cruz RN 50 mcg FENTANYL given in lab by Luis Antonio Cruz RN in Left Antecubital via Peripheral IV. VERSED 05/05/2017 12:48:00 PM 2 mg Luis Antonio Cruz RN 2 mg VERSED given in lab by Luis Antonio Cruz RN in Left Antecubital via Peripheral IV. 1% XYLOCAINE 05/05/2017 12:55:06 PM 20 mL Nevin Marie 20 mL 1% XYLOCAINE given in lab by Nevin Marie in Right Groin via Subcutaneous. Ordered by Nevin Blanco. VERSED 05/05/2017 12:57:51 PM 1 mg Luis Antonio Cruz RN 1 mg VERSED given in lab by Luis Antonio Cruz RN in Left Antecubital via Peripheral IV. Ordered by Nevin Marie. SOLU-CORTEF 05/05/2017 1:00:42 PM 100 mg Luis Antonio Cruz RN 100 mg SOLU-CORTEF given in lab by Luis Antonio Cruz RN in Left Antecubital via Peripheral IV. Ordered by Nevin Marie. VASOTEC 05/05/2017 1:08:09 PM 2.5 mg Luis Antonio Cruz RN 2.5 mg VASOTEC given in lab by Luis Antonio Cruz RN via Peripheral IV. Ordered by Nevin Marie. Medication (Drip) Medication Time Given Dosage/Unit Concentration/Unit Diluent (ml) Solution IV Solutions 05/05/2017 12:12:28 PM 50 mL (IV) NaCl .9 Patient arrived on IV Solutions in Left Antecubital via Peripheral IV. Pump/Drip Flow using NaCl .9. Initial Case Assessment Cardiovascular HR Rhythm NIBP Chest Pain 67 sr 185/84 0 Edema Present Skin color Skin None Normal Warm Dry Circulatory - Right Pulses Dorsalis Pedis Femoral 3 3 Scale (0,1,2,3,4,d) Circulatory - Left Pulses Dorsalis Pedis Femoral 3 3 Scale (0,1,2,3,4,d) Neurological State Oriented to time-place- Alert Moves all extremities person Respiration - General Respiration Rate SpO2 (%) (B/min) 9 96 Final Case Assessment Cardiovascular HR Rhythm NIBP Chest Pain 67 sr 185/84 0 Edema Present Skin color Skin None Normal Warm Dry Circulatory - Right Pulses Dorsalis Pedis Femoral 3 3 Scale (0,1,2,3,4,d) Circulatory - Left Pulses Dorsalis Pedis Femoral 3 3 Scale (0,1,2,3,4,d) Neurological State Oriented to time-place- Alert Moves all extremities person Respiration - General Respiration Rate SpO2 (%) (B/min) 9 96 Chronological Log Time Study Chronological Log 12:12:12 Patient arrived via Bed. 12:12:13 Patient Name, D.O.B, / Armband Verified By R.N. 12:12:15 Consent signed by the physician and the patient and verified by the Roaster Operator staff. 12:12:17 Verbal Stimulation=2 Physical Stimulation=2 Airway=2 Respiration=2 TOTAL=8. (0=absent, 1=li mited, 2=present) 12:12:23 Patient has been NPO for More than 6Hrs. 12:12:24 Skin Breakdown- None per patient 12:12:24 Patient Warmer Placed on the Table. 12:12: Farrah Prominences Protected 12:12:28 A # 20 IV was noted in the Antecubital (left). Grade = 0 12:12:28 Patient arrived on IV Solutions in Left Antecubital via Peripheral IV. Pump/Drip Flow using NaCl .9. 12:12:30 History and physical on the chart or being dictated. Assessment: Initial Case, HR=67 BPM, Rhythm=sr, ZESO=804/84 mmhg, Chest Pain=0, Edema=None, Col or=Normal, Skin = Warm, Dry Right Pulses: Adrian Ped=3, Femoral=3 12:12:31 Left Pulses: Adrian Ped=3, Femoral=3 Neurological: State=Alert, Ox3, GILES Respiration: Resp=9 B/min, SpO2=96 % Vitals capture started with the following parameters, Patient=Adult, Interval=5 min, Initial Pr etszwc=814 mmHg, 12:17:10 Deflation Rate=5 mmHg, Cuff placed on Right Arm 12:18:23 HR=65 bpm, AKYY=409/82 mmhg, SpO2=98.0 %, Resp=8 B/min, Pain=0, Laya=2, Parra=2 12:22:51 HR=58 bpm, IQCB=516/84 mmhg, SpO2=97.0 %, Resp=7 B/min, Pain=0, Laya=2, Parra=2 12:23:00 Bilateral groins prepped with 2% chlorhexidine, and draped after a 3 minute waiting time. 12:25:46 Reference ECG taken 12:27:52 HR=56 bpm, TRKV=523/89 mmhg, SpO2=98.0 %, Resp=12 B/min, Pain=0, Laya=2, Parra=2 12:29:47 Pressure channel 1 zeroed. 12:30:06 paged 12:32:53 HR=59 bpm, HLKY=216/92 mmhg, SpO2=94 %, Resp=4 B/min, Pain=0, Laya=6, Parra=2 12:37:50 HR=59 bpm, EGKB=238/90 mmhg, SpO2=94 %, Resp=14 B/min, Pain=0, Laya=6, Parra=2 12:42:54 HR=56 bpm, PSIH=353/79 mmhg, SpO2=93 %, Resp=14 B/min, Pain=0, Laya=6, Parra=2 12:48:00 50 mcg FENTANYL given in lab by Luis Antonio Cruz RN in Left Antecubital via Peripheral IV. 12:48:00 2 mg VERSED given in lab by Luis Antonio Cruz RN in Left Antecubital via Peripheral IV. 12:48:32 HR=61 bpm, FNOK=094/83 mmhg, SpO2=93 %, Resp=11 B/min, Pain=0, Laya=6, Parra=2 12:49:45 MD arrived. 12:52:54 HR=57 bpm, QIKY=803/85 mmhg, SpO2=93.0 %, Resp=9 B/min, Pain=0, Laya=6, Parra=2 Time Out. Correct patient, correct procedure, correct physician, power injector loaded, with co ntrast with surgical team 12:53:25 present. Time Out Concurred by MD and individual staff in procedure. 12:54:36 Case Start 20 mL 1% XYLOCAINE given in lab by Nevin Marie in Right Groin via Subcutaneous. Ordered by Cynthia, 12:55:06 Nevin. 12:56:44 Access site was Right Femoral Artery. A INTRODUCER SET, MICROPUNCTURE, STIFFENED FR 5 was advanced into the Fem Art (right) using the 12:56:55 Percutaneous technique. A SHEATH, FR4 TERUMO (10CM) FR 4 was exchanged in the Fem Art (right). This was necessary in or swati to 12:57:03 accomodate a larger catheter. 12:57:51 1 mg VERSED given in lab by Luis Antonio Cruz RN in Left Antecubital via Peripheral IV. Ordered by Nevin Marie. 12:58:30 HR=58 bpm, UIHJ=922/77 mmhg, SpO2=95.0 %, Resp=6 B/min, Pain=0, Laya=6, Parra=2 A JL 4.0 INFINITI CATHETER FR 4 was advanced over a wire. OMNIPAQUE, 350 MG, 150ML 150ML was us ed for 12:58:45 injections. Recorded Pressure: Ao, HR=59, Condition=Condition 1 12:59:23 (Aorta) Ao 181/75/116 12:59:33 The LCA was injected and visualized at various angles. OMNIPAQUE, 350 MG, 150ML 150ML used . 100 mg SOLU-CORTEF given in lab by Luis Antonio Cruz RN in Left Antecubital via Peripheral IV. Order ed by Cynthia, 13:00:42 Nevin. 13:01:01 Catheter was removed A 3DRC INFINITI CATHETER FR 4 was advanced over a wire. OMNIPAQUE, 350 MG, 150ML 150ML was used for 13:01:19 injections. 13:02:54 HR=58 bpm, SDBT=533/81 mmhg, SpO2=92.0 %, Resp=8 B/min, Pain=0, Laya=6, Parra=2 13:03:07 The RCA was injected and visualized at various angles. OMNIPAQUE, 350 MG, 150ML 150ML used . 13:04:36 Catheter was removed A PIGTAIL ANG. INFINITI CATHETER FR 4 was advanced over a wire. OMNIPAQUE, 350 MG, 150ML 150ML was used 13:04:37 for injections. Recorded Pressure: LV, HR=71, Condition=Condition 1 13:05:30 (Left Ventricle) LV 195/0/14 13:05:53 The LV was injected at 8 cc/sec for a total of 32. OMNIPAQUE, 350 MG, 150ML 150ML used. Recorded Pressure: LV, Ao, HR=79, Condition=Condition 1 13:07:16 (Left Ventricle) LV 187/12/28, (Aorta) Ao 198/85/131 Recorded Pressure: LV, HR=73, Condition=Condition 1 13:07:19 (Left Ventricle) LV 198/89/88 13:07:55 HR=53 bpm, SJCX=255/85 mmhg, SpO2=95.0 %, Resp=8 B/min, Parra=2 13:08:09 2.5 mg VASOTEC given in lab by Luis Antonio Cruz RN via Peripheral IV. Ordered by Rose Marie. 13:10:27 Case End Assessment: Final Case, HR=67 BPM, Rhythm=sr, NIGA=548/84 mmhg, Chest Pain=0, Edema=None, [place] r=Normal, Skin = Warm, Dry Right Pulses: Adrian Ped=3, Femoral=3 13:10:35 Left Pulses: Adrian Ped=3, Femoral=3 Neurological: State=Alert, Ox3, GILES Respiration: Resp=9 B/min, SpO2=96 % 13:10:38 Catheter(s) removed without difficulty 13:10:42 Sheath(s) left in place, will be removed in Holding Area 13:10:47 Sterile dressing applied to site 13:10:48 No case complications noted. 13:10:49 Cine recording checked. 13:10:53 Bedside Report will be given. 13:10:56 Contrast Scanned 13:11:07 A Left Heart Cath was performed. 13:13:35 HR=12 bpm, LJRI=907/74 mmhg, Resp=9 B/min, Pain=0, Laya=6, Parra=2 13:15:57 Vitals capture stopped. 13:17:55 Patient moved to [facility] End Study - Contrast Media Used In Study Contrast Total Opened (mL) Total Used (mL) Total Wasted (mL) Omnipaque 50 50 0 End Study - Maximum Contrast Load Max Contrast Load (mL) 477.3 End Study - Radiation Exposure Fluoro Time (minutes) 3.2 End Study - Patient Disposition Complications Transferred To Interventional Outcome No Telemetry Bed No attempt made
[2017-05-05] MEDS ORDERED: amLODIPine BESYLATE 5 MG TAB PO ONE (13:45)
--- NOTE | 2017-05-06 00:10 | EKG ---
Date Performed: 05/05/2017 Time Performed: 11:01:04 PTAGE: 57 years EKG: Sinus bradycardia. Inferior infarct - age undetermined Possible anterior infarct - age unde termined Non-specific ST/T wave changes Abnormal ECG PREVIOUS TRACING : 07/08/2016 16.35 Compared to prior tracing, previously LBBB pattern DOCTOR: Jagjit Ross Interpretating Date/Time 05/06/2017 00:09:41
--- NOTE | 2017-05-06 10:30 | MA ---
cc: LINDA ADAMS MD, HUMAYUN A. M.D. DATE 05/05/2017 PROCEDURE Cardiac catheterization. INDICATION FOR CATHETERIZATION Continued chest pain. CONSENT A full informed consent was obtained prior to the procedure. The risks of , bleeding, myocardial infarction, stroke, foreseen and unforeseen complications were reviewed. The patient fully appeared to understand the risks. PROCEDURAL STATEMENTS The patient was draped and prepped in the usual manner. The right femoral artery was entered using a micropuncture technique. Via a 4 Indian sheath left and right coronary catheters were used to intubate the left and right coronaries, a pigtail catheter the left ventricle. Multiple angiographic views were carried out. At the end of the catheterization procedure all catheters were removed. The sheath was left in place to be pulled in the holding area. The patient's blood pressure was markedly elevated so Vasotec was given. FINDINGS HEMODYNAMICS The aortic pressure was 198/85 with a mean of 131. The left ventricular pressure was 187 with a left ventricular end-diastolic pressure of 28. There was no evidence of significant gradient on pullback across the LV outflow tract and aortic valve. LEFT VENTRICULOGRAM The overall ejection fraction was 60%. There was no evidence of significant mitral regurgitation or mural thrombus. CORONARIES The left main is large and free of significant disease. The left anterior descending artery is a large vessel free of significant disease. There is a large first diagonal branch. The circumflex vessel is a large vessel ending in a large obtuse marginal branch and free of significant disease. The right coronary artery is a large vessel with some mild diffuse 25% disease. There is a large posterior descending artery and large posterolateral branch. CONCLUSIONS 25% disease with mild thickening of the right coronary but no significant stenosis. Normal LV function. No evidence of significant coronary artery disease. PLAN Medical management. Nevin Marie MD, FRCP,[facility] /1:19 PM /10:13 AM
[2017-05-08] MEDS ORDERED: BENA25TA6 PO (10:44)
== END 2017-05-05 17:18 | disposition home or self-care (01) ==
LOC: HDOC 10:01 → HDIC 10:01 → HDOC 17:18
PROVIDERS: ATTEND Internal Medicine Cardiovascular Disease
DX: R07.9 Chest pain, unspecified (principal); I47.1 Supraventricular tachycardia; I44.7 Left bundle-branch block, unspecified; R06.02 Shortness of breath; I10 Essential (primary) hypertension; E11.9 Type 2 diabetes mellitus without complications; G54.0 Brachial plexus disorders; M54.9 Dorsalgia, unspecified; N19 Unspecified kidney failure; Z79.84 Long term (current) use of oral hypoglycemic drugs
CPT/HCPCS: 80048; 85025; 85610; 85730; 93005; 93458; 99152; C1769; C1893; J1644; J1720; J2250; J2930; J3010; Q9967

== ENCOUNTER 2017-08-14 15:58 | Emergency (ER) | payer OTHER ==
[~2017-08-14] VITALS: Ht 175.3 cm; Wt 82.0 kg
[~2017-08-14 15:58] MED LIST changes: +ASPI-516 CHEW; +BENA25TA6 PO; -BLOO1EAC16 SQ; -BLOOKIT15 SQ; -CLOT1CRE6 TOPICAL; +COLA100C5; -D200CAP PO; -GLUCTES12 SQ; +ISOR40CR; +MIRA3350 PO; -OMEP20TA93 PO; +PRED20 PO; +VITA1000 PO; +ZANT150T2 PO
[2017-08-14 16:16] VITALS: BP 161/70; PULSE 58; RESP 18; TEMP 98; O2SAT 97
[2017-08-14] MEDS ORDERED: LISI2.5T3 PO (17:30)
[2017-08-14] MEDS ORDERED: OMEP10SU (17:30)
[2017-08-14] MEDS ORDERED: LEVO50TA4 PO (17:30)
[2017-08-15] MEDS ORDERED: NORC5TAB PO (00:12)
== END 2017-08-14 17:58 | disposition left against medical advice (07) ==
LOC: NEPD 15:58
DX: S69.90XA Unspecified injury of unspecified wrist, hand and finger(s), initial encounter (principal); X58.XXXA Exposure to other specified factors, initial encounter
CPT/HCPCS: 99281

== ENCOUNTER 2017-08-14 21:47 | Emergency (ER) | payer OTHER ==
[~2017-08-14] VITALS: Ht 175.3 cm; Wt 85.0 kg
[~2017-08-14 21:47] MED LIST changes: +LEVO50TA4 PO; +LISI2.5T3 PO; +OMEP10SU
[2017-08-14 22:50] VITALS: BP 183/65; PULSE 60; RESP 18; TEMP 97.4; O2SAT 99
[2017-08-14] MEDS ORDERED: ACETAMINOPHEN/HYDROcodone 325 MG/5 MG TAB PO ONE (23:45)
--- NOTE | 2017-08-15 00:06 | RADRPT ---
EXAM DATE/TIME: 08/14/2017 23:42 [place] COMPARISON: No previous studies available for comparison. INDICATIONS : Left thumb pain from slamming digit with car door. MEDICAL HISTORY : Hypertension. Hypercholesterolemia. Arthritis. SURGICAL HISTORY : None. ENCOUNTER: Initial ACUITY: 1 day PAIN SCORE: 10/10 LOCATION: Left thumb FINDINGS: Examination of the first digit of the left hand demonstrates no evidence of fracture or dislocation. There are mild degenerative changes in the interphalangeal joint with sclerosis and spurring. No rad iopaque foreign bodies are seen. The soft tissues are intact. CONCLUSION: 1. No acute fracture or malalignment. 2. Mild osteoarthritic change. Mark Brooke MD on August 15, 2017 at 0:03 Board Certified Radiologist. This report was verified electronically.
[2017-08-15] MEDS ORDERED: NORC5TAB PO (00:12)
--- NOTE | 2017-08-15 00:18 | PD ---
HPI Chief Complaint: Injury Time Seen by Provider: 23:32 Travel History International Travel<30 days: No Contact w/Intl Traveler<30days: No Traveled to known affect area: No History of Present Illness HPI 57-year-old white female with presents to the emergency department with complains of left thumb pain after closing in a car door earlier this afternoon. Patient denies any numbness or tingling. Pain is moderate. Throbbing in nature. Exacerbated by closing the car door. No alleviating factor. PFSH Past Medical History Arthritis: Yes Asthma: No Autoimmune Disease: No Blood Disorders: No Anxiety: Yes Depression: Yes Heart Rhythm Problems: Yes (TACHYCARDIA; PT HAS CONGENITAL CLUSTER DZ WITH MULTI COMPLICATIONS) Cancer: No Cardiovascular Problems: Yes (HTN, LBBB, SVT ) High Cholesterol: Yes Chest Pain: Yes Congestive Heart Failure: No COPD: No Cerebrovascular Accident: No Diabetes: Yes Patient Takes Glucophage: No Diminished Hearing: No Endocrine: Yes Gastrointestinal Disorders: No GERD: Yes Glaucoma: No Genitourinary: Yes (FREQUENT UTI'S ,RIGHT URETERAL STENT,HX KIDNEY STONES, CONGENITAL URETER CT) Headaches: No Hepatitis: No Hiatal Hernia: No Hypertension: Yes Immune Disorder: Yes (POSSIBLE LUPUS) Implanted Vascular Access Dvce: Yes (STABILIZER FOR RIB AND P/ CARDIAC CLUSTER CORRECTION AND RIB FX) Kidney Stones: No Musculoskeletal: Yes (RIGHT TMJ, CERVICAL AND RIGHT SHOULDER,ARTHRITIS) Neurologic: Yes Psychiatric: Yes (PTSD/DEPRESSION) Reproductive: No Respiratory: Yes (SOB) Integumentary: No Immunizations Current: Yes Migraines: No Myocardial Infarction: No Renal Failure: No Seizures: No Sleep Apnea: No Thyroid Disease: No Ulcer: No Menopausal: Yes : 4 Para: 3 Miscarriage: 1 : 1 Tubal Ligation: Yes Past Surgical History Abdominal Surgery: Yes (CHOLYCYSTECTOMY, REMOVAL STONE BILE DUCT) AICD: No Appendectomy: Yes Body Medical Devices: STIMULATOR LEFT BUTTOCKS Cardiac Surgery: No Cholecystectomy: Yes Ear Surgery: No Endocrine Surgery: No Eye Surgery: Yes (TEAR DUCT PLUGS) Genitourinary Surgery: Yes (URETERAL STENTS) Gynecologic Surgery: Yes (YANNA, TUBAL LIG.) Hysterectomy: Yes Joint Replacement: No Neurologic Surgery: Yes (L4-5 S1 FUSION) Oral Surgery: Yes (PART OF RIGHT JAWBONE REMOVED) Pacemaker: No Thoracic Surgery: No Other Surgery: Yes (LYMPNODE RIGHT/BRACHIAL PLEXIS INJURY) Social History Alcohol Use: No Tobacco Use: No (never) Substance Use: No Allergies-Medications (Allergen,Severity, Reaction): Coded Allergies: adhesive (Unverified Allergy, Severe, hives short period of time only is fine, 08/14/17) IV TAPES ARE OK epinephrine (Unverified Allergy, Severe, INCREASED SVT'S, 08/14/17) shellfish derived (Unverified Allergy, Severe, Hives, 08/14/17) NSAIDS (Non-Steroidal Anti-Inflamma (Verified Allergy, Intermediate, Kidney failure, 08/14/17) cyclobenzaprine (Unverified Allergy, Intermediate, Arrhythmias, 08/14/17) caffeine (Unverified Adverse Reaction, Severe, SVT, 08/14/17) codeine (Unverified Adverse Reaction, Severe, IRREGULAR HEARTRATE, 08/14/17 ) tizanidine (Unverified Adverse Reaction, Severe, Hallucinations. , 08/14/17 ) amoxicillin (Unverified Adverse Reaction, Intermediate, [place] bad, chest felt funny, nauseated, 08/14/17) clavulanic acid (Unverified Adverse Reaction, Intermediate, [place] bad, chest felt funny, nauseated, 08/14/17) *MDRO Multi-Drug Resistant Organism (Verified Adverse Reaction, Unknown, ) MRSA PCR Screen POSITIVE - 07/07/16 Reported Meds & Prescriptions Reported Meds & Active Scripts Active [place] (Hydrocodone-Acetaminophen) 5 Mg-325 Mg Tab 1 Tab PO Q8HR PRN 3 Days Morphine ER (Morphine Sulfate) 60 Mg Tab 60 Mg PO Q8H Amitriptyline (Amitriptyline HCl) 50 Mg Tab 50 Mg PO HS Glipizide 10 Mg Tab 10 Mg PO DAILY Take 30 minutes before a meal Xanax (Alprazolam) 1 Mg Tab 1 Mg PO Q6H PRN Potassium Chloride ER (Potassium Chloride) 10 Meq Cap 10 Meq PO DAILY Lactulose Liq (Lactulose) 10 Gm/15 Ml Soln 30 Ml PO TID PRN Atenolol 50 Mg Tab 50 Mg PO BID Atorvastatin (Atorvastatin Calcium) 10 Mg Tab 10 Mg PO HS Gabapentin 800 Mg Tab 800 Mg PO QID Zofran (Ondansetron HCl) 4 Mg Tab 4 Mg PO Q12HR PRN Morphine IR (Morphine Sulfate) 15 Mg Tab 15 Mg PO Q4H PRN Reported Levothyroxine (Levothyroxine Sodium) 50 Mcg Tab 50 Mcg PO DAILY Prilosec (Omeprazole Magnesium) 10 Mg Pow Lisinopril 2.5 Mg Tab 2.5 Mg PO DAILY Prednisone 20 Mg Tab 40 Mg PO DIRECTED Miralax Powder (Polyethylene Glycol 3350 Powder) 17 Gm Powd 17 Gm PO DAILY Mix and dissolve one measuring cap-ful (17 grams) in water or juice. Colace (Docusate Sodium) 100 Mg Capsule Aspirin 81 Mg Chew 81 Mg CHEW DAILY Soma (Carisoprodol) 250 Mg Tab 250 Mg PO QID PRN Lidocare Back/Shoulder (Lidocaine) 4 % Pad 1 Pad TOPICAL DAILY PRN Nitrostat SL (Nitroglycerin) 0.4 Mg Subl 0.4 Mg SL DIRECTED PRN ONE TABLET UNDER THE TONGUE NEEDED FOR CHEST PAIN, MAY REPEAT EVERY FIVE MINUTES FOR A TOTAL OF 3 DOSES OR CALL 911 IF NO RELIEF Review of Systems Except as stated in HPI: all other systems reviewed are Neg Physical Exam Narrative GENERAL: This is a well-nourished, well-developed patient, in no apparent distress. SKIN: No rashes, ecchymoses or lesions. Warm and dry. HEAD: Atraumatic. Normocephalic. EYES: PERRL, EOMI, no discharge or injection. No scleral icterus. EARS: Clear NOSE: Nasal turbinates appear normal. THROAT: Mucosa pink and moist. Airway patent. NECK: Trachea midline. supple, moves head freely. LUNGS: Clear to auscultation. CV: Regular in rhythm. ABDOMEN: Soft nontender. EXT: No clubbing cyanosis or edema. Examination of the left thumb reveals a partial avulsion of the nail from the distal end of the nail bed. The base of the nail is intact in the eponychial space. There had been some bleeding around the nail. No active bleeding now. The skin is intact. Slight ecchymosis. Patient is able to extend and flex her finger freely. Data Data Last Documented VS Vital Signs Date Time Temp Pulse Resp B/P (MAP) Pulse Ox O2 Delivery O2 Flow Rate FiO2 08/14/17 22:50 97.4 60 18 183/65 (104) 99 Orders Orders Finger ([id number]) (08/14/17 23:39) Acetamin-Hydrocod 325-5 Mg ([place] 5-325 (08/14/17 23:45) Ed Discharge Order (08/15/17 00:10) [facility] Medical Decision Making Medical Screen Exam Complete: Yes Emergency Medical Condition: Yes Medical Record Reviewed: Yes Interpretation(s) Last 24 hours Impressions Finger X-Ray 08/14/17 [id number] Signed Impressions: Service Date/Time: Monday, August 14, 2017 23:42 - CONCLUSION: 1. No acute fracture or malalignment. 2. Mild osteoarthritic change. Mark Brooke MD Differential Diagnosis MDM: High Differential diagnoses: Fracture, sprain, strain, dislocation, contusion, neurovascular injury Narrative Course Patient has been given a digital block with Marcaine and lidocaine. X-rays negative for bony injury. The finger is cleansed and the nail is secured down with a Band-Aid. Patient is given [place] 5 mg p.o. for pain. This is left thumb contusion, partial nail avulsion Diagnosis Primary Impression: Left thumb contusion Additional Impression: Partial nail avulsion Patient Instructions: Narcotic given in the ED, General Instructions Additional Instructions: Rest. Elevation. Ice. Medications as directed. Daily wound care with soap and water and keep a Band-Aid on the nail to keep it from getting caught on anything. Over the next 2 weeks gently elevate your cuticle Follow-up with a medical doctor in 1 week. Return to the ER if any problems. Med/Other Pt SpecificInfo: Prescription(s) given Scripts Hydrocodone-Acetaminophen ([place]) 5 Mg-325 Mg Tab 1 TAB PO Q8HR Y for PAIN for 3 Days, TAB 0 Refills Prov: Rebecca Kan DO 08/15/17 Disposition: 01 DISCHARGE HOME Condition: Stable Yair Hirsch August 15, 2017 00:18
== END 2017-08-15 00:53 | disposition home or self-care (01) ==
LOC: NEPD 21:47
DX: S60.112A Contusion of left thumb with damage to nail, initial encounter (principal); E78.00 Pure hypercholesterolemia, unspecified; I10 Essential (primary) hypertension; W23.0XXA Caught, crushed, jammed, or pinched between moving objects, initial encounter
CPT/HCPCS: 73140; 99283